=== PATIENT | female | born 1960 | race Caucasian/White ===

== ENCOUNTER 2018-03-12 07:48 | Inpatient (IN) | payer OTHER ==
[~2018-03-12] VITALS: Ht 158.8 cm; Wt 118.0 kg
--- NOTE | ~2018-03-12 | EKG ---
[place], [place] ELECTROCARDIOGRAM REPORT NAME: ROBERT STAFFORD UNIT #: [id number] ROOM: 504 DOCTOR: ARNOLD DRAFT REPORT BIRTHDATE: [birth year] [facility] Test Date: 2018-03-12 Test Time: 08:11:50 Pat Name: ROBERT STAFFORD Department: Room: 504 Gender: F Stock Mixer: [id number] : 1960 Requested By: TREY SANDOVAL Order Number: [id number] Reading MD: Madhav Tidwell MD Measurements Intervals [place] Rate: 77 P: 54 MT: 135 QRS: 47 QRSD: 85 T: 60 QT: 392 QTc: 444 Interpretive Statements Sinus rhythm Low voltage, precordial leads Electronically Signed On 03-12-2018 11:11:50 PDT by Madhav Tidwell MD CM:EKGRPT:ELECTROCARDIOGRAM REPORT [id number] TREY CHAN DRAFT REPORT TREY SANDOVAL DO
[~2018-03-12 07:48] MED LIST: ADVAIR 250/501 EA INH; ALBUTEROL0.09 MG/A2 IH; ALBUTEROL0.09 MG/A2 INH; ALBUTEROL2.5 MG/0.5 INH; BACTRIM DS 8001 TA1 PO; CIPRO500 MG PO; DELTASONE10 MG PO; DOXYCYCLINE MO100 MG PO; DOXYCYCLINE100 M3 PO; FLEXERIL10 MG PO; MEDROL DOSEPAK4 MG PO; MOTRIN800 MG PO; MUCINEX ER600 MG PO; PREDNICOT20 MG PO; PREDNISONE10 MG PO; PROVENTIL HFA6.7 GM INH; SINGULAIR10 MG PO; THEOPHYLLINE300 MG PO; THEOPHYLLINE600 MG PO; ZITHROMAX Z PA250 MG PO
[2018-03-12 08:10] LABS: BASO # 0.1 10*3/uL (0.0-0.1); BASO % 1.3 % (0.0-1.0); EOS # 0.4 10*3/uL (0.0-0.4); EOS % 7.9 % (1.0-4.0); HEMATOCRIT 42.6 % (37.0-47.0); HEMOGLOBIN 13.4 g/dl (12.0-16.0); LYMPH # 1.6 10*3/uL (1.3-4.4); LYMPH % 30.7 % (27.0-41.0); MEAN CORPUSCULAR HGB 31.5 pg (27.0-31.0); MEAN CORPUSCULAR HGB CONC 31.5 g/dl (33.0-37.0); MEAN PLATELET VOLUME 8.7 fl (9.6-12.3); MONO # 0.4 10*3/uL (0.1-1.0); MONO % 6.5 % (3.0-9.0); NEUT # 2.9 10*3/uL (2.3-7.9); NEUT % 53.4 % (47.0-73.0); PLATELET COUNT AUTOMATED 235 10*3/uL (130-400); RED BLOOD COUNT 4.26 10*6/uL (4.10-5.10); RED CELL DISTRI WIDTH 12.7 % (0-14.5); WHITE BLOOD COUNT 5.4 10*3/uL (4.8-10.8)
[2018-03-12 08:18] LABS: ACT PARTIAL THROMBO TIME 23.9 SECONDS (20.8-31.5)
[2018-03-12 08:25] LABS: ALBUMIN 3.4 gm/dl (3.1-4.5); ALKALINE PHOSPHATASE 71 U/L (45-117); BUN 8 mg/dl (7-24); CHLORIDE 107 mmol/L (98-107); CREATININE 0.88 mg/dL (0.55-1.02); LIPASE 221 U/L (73-393); POTASSIUM 3.7 mmol/L (3.5-5.1); SGOT/AST 20 IU/L (3-35); SGPT/ALT 28 U/L (12-78); SODIUM 143 mmol/L (136-145); TOTAL PROTEIN 6.8 gm/dL (6.4-8.2)
[2018-03-12 08:29] LABS: TROPONIN I < 0.015 ng/ml (<0.045)
[2018-03-12 08:43] VITALS: BP 140/88
[2018-03-12 09:30] VITALS: BP 123/74
[2018-03-12] MEDS ORDERED: IPRATROPIU0.2 MG/1 M NEB (09:33)
[2018-03-12 12:00] VITALS: BP 124/78
[2018-03-12 16:00] VITALS: BP 127/71
[2018-03-12 20:00] VITALS: BP 118/56
[2018-03-13] VITALS: BP 124/69
[2018-03-13 06:38] LABS: BASO % 0.1 % (0.0-1.0); HEMATOCRIT 38.6 % (37.0-47.0); HEMOGLOBIN 12.2 g/dl (12.0-16.0); LYMPH # 0.6 10*3/uL (1.3-4.4); MEAN CELL VOLUME 100.5 fl (81.0-99.0); MEAN CORPUSCULAR HGB 31.8 pg (27.0-31.0); MEAN CORPUSCULAR HGB CONC 31.6 g/dl (33.0-37.0); MEAN PLATELET VOLUME 9.3 fl (9.6-12.3); MONO # 0.4 10*3/uL (0.1-1.0); MONO % 4.5 % (3.0-9.0); NEUT % 87.9 % (47.0-73.0); PLATELET COUNT AUTOMATED 245 10*3/uL (130-400); RED BLOOD COUNT 3.84 10*6/uL (4.10-5.10); RED CELL DISTRI WIDTH 12.6 % (0-14.5); WHITE BLOOD COUNT 9.2 10*3/uL (4.8-10.8)
[2018-03-13 07:15] LABS: CHLORIDE 107 mmol/L (98-107); POTASSIUM 4.1 mmol/L (3.5-5.1); SODIUM 141 mmol/L (136-145)
[2018-03-13 07:16] LABS: ACT PARTIAL THROMBO TIME 21.6 SECONDS (20.8-31.5)
[2018-03-13 07:43] LABS: ALBUMIN 3.2 gm/dl (3.1-4.5); ALKALINE PHOSPHATASE 63 U/L (45-117); BUN 10 mg/dl (7-24); CHOLESTEROL 170 mg/dL (<200); CREATININE 0.81 mg/dL (0.55-1.02); HDL CHOLESTEROL 82 mg/dl (40-60); LDL CHOLESTEROL 75 mg/dL (9-159); PHOSPHOROUS 3.2 mg/dL (2.5-4.9); SGOT/AST 17 IU/L (3-35); SGPT/ALT 24 U/L (12-78); THYROID STIM HORMONE (HS) 0.516 uIU/ml (0.358-4.75); TOTAL PROTEIN 6.3 gm/dL (6.4-8.2); TRIGLYCERIDES 66 mg/dl (<150); VLDL CHOLESTEROL 13 mg/dL (6-40)
[2018-03-13 08:00] VITALS: BP 118/72
[2018-03-13 12:00] VITALS: BP 126/77
[2018-03-13 15:24] LABS: VITAMIN D, 25-HYDROXY 14.3 ng/mL (30-100)
[2018-03-13 16:00] VITALS: BP 135/78
[2018-03-13 20:00] VITALS: BP 133/75
[2018-03-14] VITALS: BP 107/53
[2018-03-14 06:35] LABS: BASO % 0.1 % (0.0-1.0); EOS % 0.1 % (1.0-4.0); HEMATOCRIT 38.2 % (37.0-47.0); HEMOGLOBIN 12.1 g/dl (12.0-16.0); LYMPH # 1.2 10*3/uL (1.3-4.4); LYMPH % 9.6 % (27.0-41.0); MEAN CELL VOLUME 101.1 fl (81.0-99.0); MEAN CORPUSCULAR HGB CONC 31.7 g/dl (33.0-37.0); MEAN PLATELET VOLUME 9.4 fl (9.6-12.3); MONO # 0.4 10*3/uL (0.1-1.0); MONO % 3.5 % (3.0-9.0); NEUT # 10.4 10*3/uL (2.3-7.9); NEUT % 86.2 % (47.0-73.0); PLATELET COUNT AUTOMATED 256 10*3/uL (130-400); RED BLOOD COUNT 3.78 10*6/uL (4.10-5.10); RED CELL DISTRI WIDTH 12.8 % (0-14.5)
[2018-03-14 07:07] LABS: ALBUMIN 3.3 gm/dl (3.1-4.5); ALKALINE PHOSPHATASE 60 U/L (45-117); BUN 12 mg/dl (7-24); CHLORIDE 106 mmol/L (98-107); CREATININE 0.74 mg/dL (0.55-1.02); SGOT/AST 15 IU/L (3-35); SGPT/ALT 24 U/L (12-78); SODIUM 142 mmol/L (136-145); TOTAL PROTEIN 6.3 gm/dL (6.4-8.2)
[2018-03-14] MEDS ORDERED: PREDNISONE10 MG PO (10:47)
[2018-03-14] MEDS ORDERED: VITAMIN D-32000 UNIT PO (10:47)
[2018-03-14] MEDS ORDERED: DOXYCYCLINE100 M3 PO (10:47)
[2018-03-14 12:00] VITALS: BP 120/42
== END 2018-03-14 15:00 | disposition home or self-care (01) | DRG 871 ==
LOC: ED 07:48 → 5E 08:38 → EDHOLD 08:38 → 5E 09:08
PROVIDERS: Emergency Medicine; Student in an Organized Health Care Education/Training Program
DX: A41.9 Sepsis, unspecified organism (principal); J18.9 Pneumonia, unspecified organism; J96.01 Acute respiratory failure with hypoxia; J44.1 Chronic obstructive pulmonary disease with (acute) exacerbation; J44.0 Chronic obstructive pulmonary disease with (acute) lower respiratory infection; E66.01 Morbid (severe) obesity due to excess calories; E83.41 Hypermagnesemia; R73.9 Hyperglycemia, unspecified; R03.0 Elevated blood-pressure reading, without diagnosis of hypertension; Z72.0 Tobacco use; Z71.6 Tobacco abuse counseling; Z99.81 Dependence on supplemental oxygen; Z79.899 Other long term (current) drug therapy; Z87.01 Personal history of pneumonia (recurrent); Z90.49 Acquired absence of other specified parts of digestive tract; Z98.84 Bariatric surgery status; Z68.37 Body mass index [BMI] 37.0-37.9, adult

== ENCOUNTER 2018-08-21 20:16 | Emergency (ER) | payer OTHER ==
[~2018-08-21] VITALS: Ht 160 cm; Wt 113.4 kg
--- NOTE | ~2018-08-21 | EKG ---
[place], [place] ELECTROCARDIOGRAM REPORT NAME: ROBERT STAFFORD UNIT #: [id number] ROOM: DOCTOR: EPIPHANY DRAFT REPORT BIRTHDATE: [birth year] [facility] Test Date: 2018-08-21 Test Time: 20:33:40 Pat Name: ROBERT STAFFORD Department: Room: Gender: F Senior Telecommunications Consultant: Colby Mckinley : 1960 Requested By: HAILEY RANGEL Order Number: [id number] Reading MD: Virginia Horan MD Measurements Intervals [place] Rate: 96 P: 53 AK: 134 QRS: 53 QRSD: 81 T: 57 QT: 353 QTc: 447 Interpretive Statements Sinus rhythm Low voltage, precordial leads Compared to ECG 07/13/2018 10:58:11 Low QRS voltage now present Electronically Signed On 08-22-2018 15:52:15 PDT by Virginia Horan MD CM:EKGRPT:ELECTROCARDIOGRAM REPORT [id number] HAILEY CHAN DRAFT REPORT HAILEY RANGEL DO
[~2018-08-21 20:16] MED LIST changes: +FUROSEMIDE40 MG PO; +IPRATROPIU0.2 MG/1 M NEB; +KLOR-CON M1010 ME1 PO; +VITAMIN D-32000 UNIT PO
[2018-08-21 20:57] LABS: BASO # 0.1 10*3/uL (0.0-0.1); BASO % 0.7 % (0.0-1.0); EOS # 0.2 10*3/uL (0.0-0.4); EOS % 2.6 % (1.0-4.0); HEMATOCRIT 42.4 % (37.0-47.0); HEMOGLOBIN 13.6 g/dl (12.0-16.0); LYMPH # 1.5 10*3/uL (1.3-4.4); LYMPH % 17.9 % (27.0-41.0); MEAN CELL VOLUME 101.7 fl (81.0-99.0); MEAN CORPUSCULAR HGB 32.6 pg (27.0-31.0); MEAN CORPUSCULAR HGB CONC 32.1 g/dl (33.0-37.0); MEAN PLATELET VOLUME 8.9 fl (9.6-12.3); MONO # 0.7 10*3/uL (0.1-1.0); MONO % 7.6 % (3.0-9.0); NEUT # 6.1 10*3/uL (2.3-7.9); NEUT % 70.8 % (47.0-73.0); PLATELET COUNT AUTOMATED 260 10*3/uL (130-400); RED BLOOD COUNT 4.17 10*6/uL (4.10-5.10); RED CELL DISTRI WIDTH 12.5 % (0-14.5); WHITE BLOOD COUNT 8.6 10*3/uL (4.8-10.8)
[2018-08-21 21:28] LABS: ALBUMIN 3.6 gm/dl (3.1-4.5); ALKALINE PHOSPHATASE 70 U/L (45-117); BUN 14 mg/dl (7-24); CHLORIDE 105 mmol/L (98-107); CREATININE 0.95 mg/dL (0.55-1.02); POTASSIUM 3.8 mmol/L (3.5-5.1); SGOT/AST 18 IU/L (3-35); SGPT/ALT 33 U/L (12-78); SODIUM 143 mmol/L (136-145)
[2018-08-21 21:29] LABS: TROPONIN I < 0.015 ng/ml (<0.045)
[2018-08-21] MEDS ORDERED: AVPAK AZITHROM250 M1 PO (21:59)
[2018-08-21] MEDS ORDERED: PREDNISONE20 M1 PO (21:59)
== END 2018-08-21 22:24 | disposition left against medical advice (07) ==
LOC: ED 20:16
PROVIDERS: Student in an Organized Health Care Education/Training Program
DX: J44.1 Chronic obstructive pulmonary disease with (acute) exacerbation (principal); E66.01 Morbid (severe) obesity due to excess calories; F17.200 Nicotine dependence, unspecified, uncomplicated; Z79.899 Other long term (current) drug therapy

== ENCOUNTER 2018-09-09 08:08 | Inpatient (IN) | payer OTHER ==
[~2018-09-09] VITALS: Ht 160 cm; Wt 111.1 kg
--- NOTE | ~2018-09-09 | EKG ---
[place], [place] ELECTROCARDIOGRAM REPORT NAME: ROBERT STAFFORD UNIT #: [id number] ROOM: 507 DOCTOR: ARNOLD DRAFT REPORT BIRTHDATE: [birth year] [facility] Test Date: 2018-09-09 Test Time: 08:34:54 Pat Name: ROBERT STAFFORD Department: Room: 507 Gender: F Burglar Alarm Assembler: Valery Alexander : 1960 Requested By: JOSEPH CHINO Order Number: [id number] Reading MD: Lina Barnes MD Measurements Intervals [place] Rate: 79 P: 57 MN: 134 QRS: 55 QRSD: 93 T: 62 QT: 388 QTc: 445 Interpretive Statements Sinus rhythm Low voltage, precordial leads Compared to ECG 08/21/2018 20:33:40 No significant changes Electronically Signed On 09-11-2018 10:06:35 PDT by Lina Barnes MD CM:EKGRPT:ELECTROCARDIOGRAM REPORT [id number] JOSEPH BARRETT DRAFT REPORT JOSEPH CHINO M.D.
[~2018-09-09 08:08] MED LIST changes: +AVPAK AZITHROM250 M1 PO; +PREDNISONE20 M1 PO
[2018-09-09 08:11] VITALS: BP 131/46
[2018-09-09 08:37] LABS: BASO # 0.1 10*3/uL (0.0-0.1); EOS # 0.3 10*3/uL (0.0-0.4); EOS % 4.8 % (1.0-4.0); HEMATOCRIT 41.8 % (37.0-47.0); HEMOGLOBIN 13.2 g/dl (12.0-16.0); LYMPH # 1.6 10*3/uL (1.3-4.4); MEAN CELL VOLUME 104.8 fl (81.0-99.0); MEAN CORPUSCULAR HGB 33.1 pg (27.0-31.0); MEAN CORPUSCULAR HGB CONC 31.6 g/dl (33.0-37.0); MONO # 0.3 10*3/uL (0.1-1.0); MONO % 5.5 % (3.0-9.0); NEUT # 3.7 10*3/uL (2.3-7.9); NEUT % 62.4 % (47.0-73.0); PLATELET COUNT AUTOMATED 243 10*3/uL (130-400); RED BLOOD COUNT 3.99 10*6/uL (4.10-5.10); RED CELL DISTRI WIDTH 12.8 % (0-14.5)
[2018-09-09 08:54] LABS: ALBUMIN 3.1 gm/dl (3.1-4.5); ALKALINE PHOSPHATASE 66 U/L (45-117); BUN 13 mg/dl (7-24); CHLORIDE 110 mmol/L (98-107); CREATININE 0.91 mg/dL (0.55-1.02); POTASSIUM 4.2 mmol/L (3.5-5.1); SGOT/AST 19 IU/L (3-35); SGPT/ALT 26 U/L (12-78); SODIUM 145 mmol/L (136-145); TOTAL PROTEIN 6.5 gm/dL (6.4-8.2)
--- NOTE | 2018-09-09 10:30 | NUR ---
A 57, admitted to 5E, under the services of ASHLEE Ortiz DO with a diagnosis of COPD. Chief complaint is SOB. Patient arrived via ambulatory from ER. Initial assessment completed. Vital signs taken and recorded. ASHLEE ORTIZ DO notified of admission to the unit. Orders received. See assessment for past medical history, medications and allergies. Patient and/or family oriented to unit. [facility] 5E visitation policy reviewed. Clothing/patient valuable form completed. SKIN INTACT WTIH NO WOUNDS. DECLINES FLU SHOT. PNEUMONIA VACCINATION CURRENT. BRET CROFT
[2018-09-09 10:46] VITALS: BP 124/81
[2018-09-09 12:00] VITALS: BP 138/69
[2018-09-09 16:00] VITALS: BP 128/49; BP 138/81
[2018-09-09 20:00] VITALS: BP 116/55
[2018-09-10] VITALS: BP 132/74
[2018-09-10 06:53] LABS: BASO % 0.1 % (0.0-1.0); HEMATOCRIT 40.5 % (37.0-47.0); HEMOGLOBIN 12.9 g/dl (12.0-16.0); LYMPH % 8.6 % (27.0-41.0); MEAN CELL VOLUME 102.8 fl (81.0-99.0); MEAN CORPUSCULAR HGB 32.7 pg (27.0-31.0); MEAN CORPUSCULAR HGB CONC 31.9 g/dl (33.0-37.0); MEAN PLATELET VOLUME 9.5 fl (9.6-12.3); MONO # 0.2 10*3/uL (0.1-1.0); MONO % 1.7 % (3.0-9.0); NEUT # 10.3 10*3/uL (2.3-7.9); NEUT % 88.9 % (47.0-73.0); PLATELET COUNT AUTOMATED 255 10*3/uL (130-400); RED BLOOD COUNT 3.94 10*6/uL (4.10-5.10); RED CELL DISTRI WIDTH 12.5 % (0-14.5); WHITE BLOOD COUNT 11.5 10*3/uL (4.8-10.8)
[2018-09-10 06:55] LABS: ALBUMIN 2.9 gm/dl (3.1-4.5); BUN 11 mg/dl (7-24); CHLORIDE 109 mmol/L (98-107); CHOLESTEROL 202 mg/dL (<200); CREATININE 0.68 mg/dL (0.55-1.02); PHOSPHOROUS 3.1 mg/dL (2.5-4.9); POTASSIUM 4.1 mmol/L (3.5-5.1); SGOT/AST 11 IU/L (3-35); SGPT/ALT 25 U/L (12-78); SODIUM 143 mmol/L (136-145); TOTAL PROTEIN 6.3 gm/dL (6.4-8.2); TRIGLYCERIDES 45 mg/dl (<150); VLDL CHOLESTEROL 9 mg/dL (6-40)
[2018-09-10 07:02] LABS: ALKALINE PHOSPHATASE 64 U/L (45-117); HDL CHOLESTEROL 97 mg/dl (40-60); LDL CHOLESTEROL 96 mg/dL (9-159); THYROID STIM HORMONE (HS) 0.515 uIU/ml (0.358-4.75)
[2018-09-10 08:00] VITALS: BP 132/81
--- NOTE | 2018-09-10 09:00 | NUR ---
PT SEEN AT THIS TIME. PT SITTING UP IN BED. PT HAS NO COMPLAINTS AT THIS TIME AND IS VERY PLEASANT. BED IN LOWEST LOCKED POSITION AND CALL LIGHT WITHIN REACH. WILL CONTINUE TO MONITOR
--- NOTE | 2018-09-10 10:30 | NUR ---
PT UP WALKING IN HALLS. STEADY GAIT.
[2018-09-10 12:00] VITALS: BP 127/69
--- NOTE | 2018-09-10 15:30 | NUR ---
REPORT RECEIVED FROM NERI SANTO
[2018-09-10 16:00] VITALS: BP 118/54
[2018-09-10 20:00] VITALS: BP 142/74
[2018-09-11] VITALS: BP 140/81
[2018-09-11 08:00] VITALS: BP 128/81
--- NOTE | 2018-09-11 08:00 | NUR ---
PT IS SITTING UP IN BED AT THIS THIS. PT IS AWAKE, ALERT, ORIENTED AND VERY PLEASANT. PT STATES SHE FEELS MUCH BETTER TODAY AND IS READY TO GO HOME. SHE HAS NO COMPLAINTS AT THIS TIME. BED IN LOWEST LOCKED POSITION AND CALL LIGHT WITHIN REACH.
[2018-09-11] MEDS ORDERED: MUCINEX ER600 MG PO (10:30)
[2018-09-11] MEDS ORDERED: PROVENTIL HFA6.7 GM INH (10:30)
[2018-09-11] MEDS ORDERED: ZITHROMAX500 MG PO (10:33)
[2018-09-11] MEDS ORDERED: PREDNISONE10 MG PO (10:33)
--- NOTE | 2018-09-11 11:06 | NUR ---
Discharge instructions reviewed with patient/family. Patient receptive and verbalizes understanding. Follow-up care arranged. Written instructions given to patient/family. SHANI CAMERON
--- NOTE | 2018-09-11 12:21 | NUR ---
Shipping Lead in to talk to patient. Patient states lives at HOME with FAMILY. There are FEW steps in the home. Physician: NONE, WANTS TO SET [facility] WITH [facility] Home health services: NONE Patient's level of ADLs: INDEPENDENT Patient has working utilities: YES DME: OXYGEN, PORTANBLE TANKS, NEBULIZER Follow-up physician's appointment after d/c: WILL BE MADE BY HOSPITALIST NURSE DIRECTOR ON DISCHARGE Does patient want to access PORTAL?: NO Discharge plan PT STATES SHE LIVES AT HOME WITH HER FAMILY AND IS INDEPENDENT IN HER CARE. DENIES ANY NEEDS AT HOME. STATES SHE WILL HAVE A RIDE. WILL CONTINUE TO FOLLOW.. RUSTAM LOPES
== END 2018-09-11 11:06 | disposition home or self-care (01) | DRG 189 ==
LOC: ED 08:08 → EDHOLD 09:49 → 5E 09:59
PROVIDERS: Emergency Medicine; Internal Medicine; ADMIT Internal Medicine
DX: J96.01 Acute respiratory failure with hypoxia (principal); J44.1 Chronic obstructive pulmonary disease with (acute) exacerbation; E44.0 Moderate protein-calorie malnutrition; R73.9 Hyperglycemia, unspecified; I87.2 Venous insufficiency (chronic) (peripheral); E66.01 Morbid (severe) obesity due to excess calories; F17.210 Nicotine dependence, cigarettes, uncomplicated; Z79.899 Other long term (current) drug therapy; Z87.01 Personal history of pneumonia (recurrent); Z87.440 Personal history of urinary (tract) infections; Z90.49 Acquired absence of other specified parts of digestive tract; Z98.84 Bariatric surgery status

== ENCOUNTER 2019-02-04 18:29 | Inpatient (IN) | payer OTHER ==
[~2019-02-04] VITALS: Ht 160 cm; Wt 114.1 kg
--- NOTE | ~2019-02-04 | EKG ---
[place], [place] ELECTROCARDIOGRAM REPORT NAME: ROBERT STAFFORD UNIT #: [id number] ROOM: 506 DOCTOR: ARNOLD DRAFT REPORT BIRTHDATE: [birth year] [facility] Test Date: 2019-02-04 Test Time: 19:06:22 Pat Name: ROBERT STAFFORD Department: Room: 506 Gender: F Dolly Pusher: Ophelia Neves : 1960 Requested By: WALE GRAVES PA-C Order Number: [id number] Reading MD: Rene Partida MD Measurements Intervals [place] Rate: 83 P: 49 MN: 142 QRS: 50 QRSD: 78 T: 51 QT: 380 QTc: 447 Interpretive Statements Sinus rhythm Compared to ECG 09/09/2018 08:34:54 No significant changes Electronically Signed On 02-05-2019 16:02:01 PDT by Rene Partida MD CM:EKGRPT:ELECTROCARDIOGRAM REPORT [id number] WALE GRAVES PA-C EPIPHANY DRAFT REPORT WALE GRAVES PA-C
[~2019-02-04 18:29] MED LIST changes: +ZITHROMAX500 MG PO
[2019-02-04 18:31] VITALS: BP 110/65
[2019-02-04 19:05] LABS: BASO # 0.1 10*3/uL (0.0-0.1); BASO % 1.1 % (0.0-1.0); EOS # 0.5 10*3/uL (0.0-0.4); EOS % 6.8 % (1.0-4.0); HEMATOCRIT 40.5 % (37.0-47.0); HEMOGLOBIN 12.6 g/dl (12.0-16.0); LYMPH # 1.8 10*3/uL (1.3-4.4); MEAN CELL VOLUME 102.3 fl (81.0-99.0); MEAN CORPUSCULAR HGB 31.8 pg (27.0-31.0); MEAN CORPUSCULAR HGB CONC 31.1 g/dl (33.0-37.0); MEAN PLATELET VOLUME 9.2 fl (9.6-12.3); MONO # 0.6 10*3/uL (0.1-1.0); MONO % 8.3 % (3.0-9.0); NEUT # 3.7 10*3/uL (2.3-7.9); NEUT % 56.6 % (47.0-73.0); PLATELET COUNT AUTOMATED 239 10*3/uL (130-400); RED BLOOD COUNT 3.96 10*6/uL (4.10-5.10); RED CELL DISTRI WIDTH 12.9 % (0-14.5); WHITE BLOOD COUNT 6.6 10*3/uL (4.8-10.8)
--- NOTE | 2019-02-04 19:10 | NUR ---
PT LAYING IN BED AT THIS TIME. PT DENIES PAIN OR DISTRESS. WILL CONTINUE TO MONITOR.
[2019-02-04 19:16] LABS: ACT PARTIAL THROMBO TIME 23.5 SECONDS (20.0-32.1); INTERNATIONAL NORM RATIO 0.9 (2.0-3.5)
[2019-02-04 19:23] LABS: ALBUMIN 3.3 gm/dl (3.1-4.5); ALKALINE PHOSPHATASE 69 U/L (45-117); BUN 12 mg/dl (7-24); CHLORIDE 106 mmol/L (98-107); POTASSIUM 3.7 mmol/L (3.5-5.1); SGOT/AST 20 IU/L (3-35); SGPT/ALT 28 U/L (12-78); SODIUM 145 mmol/L (136-145); TOTAL PROTEIN 6.4 gm/dL (6.4-8.2)
[2019-02-04 19:30] VITALS: BP 119/66
[2019-02-04 19:40] LABS: TROPONIN I < 0.015 ng/ml (<0.045)
--- NOTE | 2019-02-04 19:40 | NUR ---
PT AMBULATED TO RESTROOM AT THIS TIME. PT UNABLE TO PROVIDE URINE SAMPLE.
[2019-02-04 21:18] LABS: BILIRUBIN NEGATIVE (NEGATIVE); BLOOD TRACE-INTACT (NEGATIVE); CLARITY CLEAR (CLEAR); COLOR YELLOW (YELLOW); GLUCOSE NEGATIVE (NEGATIVE); KETONE NEGATIVE (NEGATIVE); LEUKO ESTERASE NEGATIVE (NEGATIVE); NITRITE NEGATIVE (NEGATIVE); PH 5.5 (5.0-9.0); SPECIFIC GRAVITY <= 1.005 (1.005-1.030); UROBILINOGEN 0.2 E.U./dl (0.2-1.0)
[2019-02-04 21:25] VITALS: BP 132/71
--- NOTE | 2019-02-04 21:25 | NUR ---
PATIENT ARRIVED TO FLOOR VIA WHEELCHAIR FROM ER, ESCORTED BY PATIENT EMERGENCY MANAGER. PATIENT AMBULATED TO BED FROM WHEELCHAIR AND THEN TO BATHROOM WITHOUT INCIDENT. ASSESSMENT AND ADMISSION COMPLETED, VITAL SIGNS OBTAINED AND DOCUMENTED. PATIENT ORIENTED TO ROOM, CALL LIGHT AND FLOOR. IV ANTIBIOTICS FROM ER COMPLETED, LINE FLUSHED WITHOUT INCIDENT. NOTIFIED OF PATIENT ARRIVAL, HOME MEDICATION, PATIENT CONDITION, ORDERS RECIEVED TO D/C FLUIDS PRIOR TO ADMINISTRATION. CALL LIGHT WITHIN REACH, PATIENT DENIED ANY CHEST PAIN/PRESSURE, OR NEEDS AT THIS TIME. WILL CONTINUE TO MONITOR.
[2019-02-04 21:35] LABS: EPITHELIAL CELLS 0-2; RBC 0-2 rbc/hpf (0-2)
[2019-02-05] VITALS: BP 118/65
--- NOTE | 2019-02-05 00:05 | NUR ---
RESTING IN BED IN A POSITION OF COMFORT, EYES CLOSED, RESPIRATIONS EASY AND NONLABORED AT THIS TIME. CALL LIGHT WITHIN REACH. WILL CONTINUE TO MONITOR.
[2019-02-05 06:40] LABS: ALBUMIN 3.3 gm/dl (3.1-4.5); BUN 9 mg/dl (7-24); CHLORIDE 106 mmol/L (98-107); POTASSIUM 4.5 mmol/L (3.5-5.1); SGOT/AST 18 IU/L (3-35); SGPT/ALT 28 U/L (12-78); SODIUM 142 mmol/L (136-145); TOTAL PROTEIN 6.6 gm/dL (6.4-8.2)
[2019-02-05 06:45] LABS: ALKALINE PHOSPHATASE 70 U/L (45-117); CHOLESTEROL 197 mg/dL (<200); HDL CHOLESTEROL 99 mg/dl (40-60); LDL CHOLESTEROL 90 mg/dL (9-159); PHOSPHOROUS 2.5 mg/dL (2.5-4.9); TRIGLYCERIDES 38 mg/dl (<150); VLDL CHOLESTEROL 8 mg/dL (6-40)
[2019-02-05 06:47] LABS: HEMATOCRIT 40.9 % (37.0-47.0); HEMOGLOBIN 12.8 g/dl (12.0-16.0); MEAN CORPUSCULAR HGB 31.6 pg (27.0-31.0); MEAN CORPUSCULAR HGB CONC 31.3 g/dl (33.0-37.0); MEAN PLATELET VOLUME 9.4 fl (9.6-12.3); PLATELET COUNT AUTOMATED 257 10*3/uL (130-400); RED BLOOD COUNT 4.05 10*6/uL (4.10-5.10); RED CELL DISTRI WIDTH 12.7 % (0-14.5); WHITE BLOOD COUNT 5.4 10*3/uL (4.8-10.8)
[2019-02-05 07:19] LABS: PLATELET SUFFICIENCY NORMAL (NORMAL); TOTAL CELLS COUNTED 100 #CELLS
[2019-02-05 08:00] VITALS: BP 124/51
[2019-02-05 12:00] VITALS: BP 134/71
--- NOTE | 2019-02-05 13:14 | NUR ---
Securities Teller in to talk to patient. Patient states lives at HOME with . There are NO steps in the home. Physician: HAS APPOINTMENT [facility] TUESDAY [facility] [place] health services: NONE Patient's level of ADLs: INDEPENDENT Patient has working utilities: YES DME: OXYGEN PRN, NEBULIZER DOES NOT KNOW COMPANY NAME Follow-up physician's appointment after d/c: Does patient want to access PORTAL?: NO Discharge plan PT STATES SHE LIVES AT HOME AND IS INDEPENDENT IN HER CARE. STATES SHE HAS OXYGEN AT HOME FOR PRN USE BUT HAS NOT USED IT IN A LONG TIME. ALSO HAS A NEBULIZER. PT STATES SHE WORKS 2 JOBS. WILL HAVE A RIDE HOME ON DISCHARGE WILL CONTINUE TO FOLLOW. . RUSTAM LOPES
[2019-02-05 16:00] VITALS: BP 126/70
[2019-02-05 20:00] VITALS: BP 128/71
--- NOTE | 2019-02-05 20:38 | NUR ---
24 HR chart check completed.
--- NOTE | 2019-02-05 21:00 | NUR ---
RESTING IN BED WATCHING TV WITH NO DISTRESS NOTED. RESPIRATIONS EASY. LUNGS DIMINISHED WITH I&E WHEEZES. PULSE OX 98% RA, O2 PRESENT AT BEDSIDE FOR PRN USE. BLE RED AND WARM WITH +3 EDEMA. OFFERED AND EDUCATED REGARDING TEDS, DECLINED. CALL LIGHT WITHIN REACH. NO VOICED COMPLAINTS
[2019-02-06] VITALS: BP 113/66
--- NOTE | 2019-02-06 | NUR ---
SLEEPING. NO DISTRESS NOTED. RESPIRATIONS EASY. VSS. CALL LIGHT WITHIN REACH.
[2019-02-06] MEDS ORDERED: PROAIR HFA8.5 GM INH (01:13)
--- NOTE | 2019-02-06 06:00 | NUR ---
SLEPT THROUGHOUT NIGHT WITH NO DISTRESS NOTED. RESPIRATIONS EASY. O2 REMAINS AT BEDSIDE BUT NOT IN USE. NO C/O SOB. CALL LIGHT WITHIN REACH. NO VOICED COMPLAINTS THIS SHIFT
[2019-02-06 06:22] LABS: BASO % 0.1 % (0.0-1.0); HEMATOCRIT 40.3 % (37.0-47.0); HEMOGLOBIN 12.9 g/dl (12.0-16.0); LYMPH # 0.8 10*3/uL (1.3-4.4); LYMPH % 8.4 % (27.0-41.0); MEAN CELL VOLUME 100.5 fl (81.0-99.0); MEAN CORPUSCULAR HGB 32.2 pg (27.0-31.0); MEAN PLATELET VOLUME 9.5 fl (9.6-12.3); MONO # 0.2 10*3/uL (0.1-1.0); MONO % 2.1 % (3.0-9.0); NEUT # 8.1 10*3/uL (2.3-7.9); PLATELET COUNT AUTOMATED 253 10*3/uL (130-400); RED BLOOD COUNT 4.01 10*6/uL (4.10-5.10); RED CELL DISTRI WIDTH 12.8 % (0-14.5); WHITE BLOOD COUNT 9.1 10*3/uL (4.8-10.8)
[2019-02-06 06:28] LABS: BUN 18 mg/dl (7-24); CHLORIDE 103 mmol/L (98-107); CREATININE 0.93 mg/dL (0.55-1.02); POTASSIUM 3.9 mmol/L (3.5-5.1); SODIUM 142 mmol/L (136-145)
[2019-02-06 08:00] VITALS: BP 114/80
[2019-02-06] MEDS ORDERED: PREDNISONE10 MG PO (09:05)
[2019-02-06] MEDS ORDERED: LEVAQUIN500 M2 PO (09:05)
[2019-02-06] MEDS ORDERED: ADVAIR HFA 230-12 GM INH (09:10)
[2019-02-06] MEDS ORDERED: SINGULAIR10 M1 PO (09:10)
[2019-02-06] MEDS ORDERED: LASIX40 MG PO (09:10)
--- NOTE | 2019-02-06 11:15 | NUR ---
DISCHARGE INSTRUCTIONS GIVEN TO THIS PATIENT SHE CLERIFIES UNDERSTANDING OF DISCHARGE PLANS AND FOLLOW UP APPOINTMENTS. IV TAKEN UT AT THIS TIME
--- NOTE | 2019-02-06 11:35 | NUR ---
PATIENT LEFT AT THIS TIME ALL BELONGINGS TAKEN WITH HER NO VERBAL COMPLAINTS
== END 2019-02-06 11:25 | disposition home or self-care (01) | DRG 871 ==
LOC: ED 18:29 → EDHOLD 19:58 → 5E 19:58
PROVIDERS: Physician Assistant; Student in an Organized Health Care Education/Training Program; ADMIT Internal Medicine
DX: A41.9 Sepsis, unspecified organism (principal); J18.9 Pneumonia, unspecified organism; J44.1 Chronic obstructive pulmonary disease with (acute) exacerbation; E44.1 Mild protein-calorie malnutrition; J44.0 Chronic obstructive pulmonary disease with (acute) lower respiratory infection; Z68.42 Body mass index [BMI] 45.0-49.9, adult; E83.41 Hypermagnesemia; J45.909 Unspecified asthma, uncomplicated; F17.210 Nicotine dependence, cigarettes, uncomplicated; E66.01 Morbid (severe) obesity due to excess calories; R73.9 Hyperglycemia, unspecified; Z79.899 Other long term (current) drug therapy; Z90.49 Acquired absence of other specified parts of digestive tract; Z98.84 Bariatric surgery status

== ENCOUNTER → 2019-02-09 | Outpatient (CLI) | payer OTHER ==
[~2019-02-09] MED LIST changes: +ADVAIR HFA 230-12 GM INH; +LASIX40 MG PO; +LEVAQUIN500 M2 PO; +PROAIR HFA8.5 GM INH; +SINGULAIR10 M1 PO
== END | disposition home or self-care (01) ==
LOC: RESCLI 02:41
DX: Z12.11 Encounter for screening for malignant neoplasm of colon (principal); Z12.4 Encounter for screening for malignant neoplasm of cervix; J44.9 Chronic obstructive pulmonary disease, unspecified; E55.9 Vitamin D deficiency, unspecified; R60.0 Localized edema; E66.01 Morbid (severe) obesity due to excess calories; Z79.899 Other long term (current) drug therapy; Z87.891 Personal history of nicotine dependence; Z88.8 Allergy status to other drugs, medicaments and biological substances; Z79.01 Long term (current) use of anticoagulants

== ENCOUNTER 2019-06-03 05:22 | Inpatient (IN) | payer OTHER ==
[~2019-06-03] VITALS: Ht 157.4 cm; Wt 112.1 kg
[2019-06-03] VITALS (8 sets, daily range): BP systolic 110–161; BP diastolic 51–84
[2019-06-03 06:38] LABS: ALBUMIN 3.2 gm/dl (3.1-4.5); ALKALINE PHOSPHATASE 84 U/L (45-117); BUN 10 mg/dl (7-24); CHLORIDE 107 mmol/L (98-107); CREATININE 0.83 mg/dL (0.55-1.02); POTASSIUM 3.9 mmol/L (3.5-5.1); SGOT/AST 11 IU/L (3-35); SGPT/ALT 23 U/L (12-78); SODIUM 144 mmol/L (136-145); TOTAL PROTEIN 6.3 gm/dL (6.4-8.2)
[2019-06-03 06:39] LABS: TROPONIN I < 0.015 ng/ml (<0.045)
[2019-06-03 06:44] LABS: ACT PARTIAL THROMBO TIME 24.1 SECONDS (20.0-32.1)
[2019-06-03 08:10] LABS: BASO # 0.1 10*3/uL (0.0-0.1); EOS # 0.5 10*3/uL (0.0-0.4); EOS % 6.3 % (1.0-4.0); HEMATOCRIT 39.7 % (37.0-47.0); HEMOGLOBIN 12.2 g/dl (12.0-16.0); LYMPH # 1.3 10*3/uL (1.3-4.4); LYMPH % 18.7 % (27.0-41.0); MEAN CELL VOLUME 101.5 fl (81.0-99.0); MEAN CORPUSCULAR HGB 31.2 pg (27.0-31.0); MEAN CORPUSCULAR HGB CONC 30.7 g/dl (33.0-37.0); MONO # 0.6 10*3/uL (0.1-1.0); MONO % 8.3 % (3.0-9.0); NEUT # 4.6 10*3/uL (2.3-7.9); NEUT % 64.9 % (47.0-73.0); PLATELET COUNT AUTOMATED 256 10*3/uL (130-400); RED BLOOD COUNT 3.91 10*6/uL (4.10-5.10); RED CELL DISTRI WIDTH 12.9 % (0-14.5); WHITE BLOOD COUNT 7.1 10*3/uL (4.8-10.8)
[2019-06-03] MEDS ORDERED: ADVAIR HFA 230-12 GM INH (09:54)
[2019-06-04] VITALS: BP 135/78
[2019-06-04 07:09] LABS: ALBUMIN 3.3 gm/dl (3.1-4.5); BUN 10 mg/dl (7-24); CHLORIDE 108 mmol/L (98-107); CHOLESTEROL 214 mg/dL (<200); CREATININE 0.79 mg/dL (0.55-1.02); HDL CHOLESTEROL 93 mg/dl (40-60); LDL CHOLESTEROL 104 mg/dL (9-159); POTASSIUM 4.3 mmol/L (3.5-5.1); SGOT/AST 17 IU/L (3-35); SGPT/ALT 25 U/L (12-78); SODIUM 142 mmol/L (136-145); TOTAL PROTEIN 6.8 gm/dL (6.4-8.2); TRIGLYCERIDES 87 mg/dl (<150); VLDL CHOLESTEROL 17 mg/dL (6-40)
[2019-06-04 07:14] LABS: HEMATOCRIT 42.3 % (37.0-47.0); MEAN CORPUSCULAR HGB CONC 30.7 g/dl (33.0-37.0); MEAN PLATELET VOLUME 9.3 fl (9.6-12.3); PLATELET COUNT AUTOMATED 268 10*3/uL (130-400); RED BLOOD COUNT 4.19 10*6/uL (4.10-5.10); RED CELL DISTRI WIDTH 12.8 % (0-14.5); WHITE BLOOD COUNT 16.4 10*3/uL (4.8-10.8)
[2019-06-04 07:15] LABS: ALKALINE PHOSPHATASE 82 U/L (45-117); FREE T4 0.66 ng/dl (0.76-1.46); THYROID STIM HORMONE (HS) 0.513 uIU/ml (0.358-4.75)
[2019-06-04 08:00] VITALS: BP 110/62
[2019-06-04 08:08] LABS: PLATELET SUFFICIENCY NORMAL (NORMAL); TOTAL CELLS COUNTED 100 #CELLS
[2019-06-04 08:46] LABS: VITAMIN D, 25-HYDROXY 11.3 ng/mL (30-100)
[2019-06-04 12:00] VITALS: BP 147/83
[2019-06-04 16:00] VITALS: BP 111/60; BP 122/81
[2019-06-04 20:00] VITALS: BP 106/60
[2019-06-05] VITALS: BP 119/65
[2019-06-05 12:00] VITALS: BP 132/64
[2019-06-05 16:00] VITALS: BP 121/74
[2019-06-05 20:00] VITALS: BP 127/74
[2019-06-06] VITALS: BP 125/68
[2019-06-06 06:00] VITALS: BP 132/70
[2019-06-06 07:19] LABS: BASO % 0.1 % (0.0-1.0); HEMATOCRIT 41.9 % (37.0-47.0); HEMOGLOBIN 12.8 g/dl (12.0-16.0); LYMPH # 1.2 10*3/uL (1.3-4.4); LYMPH % 11.9 % (27.0-41.0); MEAN CELL VOLUME 101.5 fl (81.0-99.0); MEAN CORPUSCULAR HGB CONC 30.5 g/dl (33.0-37.0); MEAN PLATELET VOLUME 9.1 fl (9.6-12.3); MONO # 0.4 10*3/uL (0.1-1.0); MONO % 3.7 % (3.0-9.0); NEUT # 8.1 10*3/uL (2.3-7.9); NEUT % 83.9 % (47.0-73.0); PLATELET COUNT AUTOMATED 282 10*3/uL (130-400); RED BLOOD COUNT 4.13 10*6/uL (4.10-5.10); RED CELL DISTRI WIDTH 12.8 % (0-14.5); WHITE BLOOD COUNT 9.7 10*3/uL (4.8-10.8)
[2019-06-06 07:27] LABS: ALBUMIN 3.2 gm/dl (3.1-4.5); ALKALINE PHOSPHATASE 77 U/L (45-117); BUN 16 mg/dl (7-24); CHLORIDE 104 mmol/L (98-107); CREATININE 0.73 mg/dL (0.55-1.02); POTASSIUM 4.1 mmol/L (3.5-5.1); SGOT/AST 10 IU/L (3-35); SGPT/ALT 21 U/L (12-78); SODIUM 140 mmol/L (136-145); TOTAL PROTEIN 6.6 gm/dL (6.4-8.2)
[2019-06-06 08:00] VITALS: BP 140/84
[2019-06-06 12:00] VITALS: BP 108/88
[2019-06-06 16:00] VITALS: BP 132/70
[2019-06-06 20:00] VITALS: BP 131/75
[2019-06-07] VITALS: BP 127/79
[2019-06-07 08:00] VITALS: BP 134/70
[2019-06-07 12:00] VITALS: BP 134/88
[2019-06-07] MEDS ORDERED: PREDNISONE10 MG PO (12:42)
[2019-06-07] MEDS ORDERED: VITAMIN D5000 UNI1 PO (12:42)
== END 2019-06-07 13:40 | disposition home or self-care (01) | DRG 871 ==
LOC: ED 05:22 → EDHOLD 08:18 → 4E 08:18
PROVIDERS: Emergency Medicine Emergency Medical Services; Registered Nurse; ADMIT Family Medicine
DX: A41.9 Sepsis, unspecified organism (principal); J96.21 Acute and chronic respiratory failure with hypoxia; J96.22 Acute and chronic respiratory failure with hypercapnia; J44.1 Chronic obstructive pulmonary disease with (acute) exacerbation; J45.901 Unspecified asthma with (acute) exacerbation; E44.0 Moderate protein-calorie malnutrition; J44.0 Chronic obstructive pulmonary disease with (acute) lower respiratory infection; Z68.42 Body mass index [BMI] 45.0-49.9, adult; J20.9 Acute bronchitis, unspecified; R65.20 Severe sepsis without septic shock; R73.9 Hyperglycemia, unspecified; E66.01 Morbid (severe) obesity due to excess calories; D75.89 Other specified diseases of blood and blood-forming organs; E55.9 Vitamin D deficiency, unspecified; F17.210 Nicotine dependence, cigarettes, uncomplicated; T38.0X5A Adverse effect of glucocorticoids and synthetic analogues, initial encounter; Y92.89 Other specified places as the place of occurrence of the external cause; Z90.49 Acquired absence of other specified parts of digestive tract; Z98.84 Bariatric surgery status; Z79.899 Other long term (current) drug therapy

== ENCOUNTER 2019-09-27 00:42 | Inpatient (IN) | payer OTHER ==
[2019-09-27] VITALS (20 sets, daily range): BP systolic 76–183; BP diastolic 31–85
[~2019-09-27] VITALS: Ht 160 cm; Wt 110.0 kg
[~2019-09-27 00:42] MED LIST changes: +VITAMIN D5000 UNI1 PO
--- NOTE | 2019-09-27 01:15 | NUR ---
Pt placed on BiPap 15/5 and FiO2 35%. SpO2 98%. Pt was not moving much air. By the end of a triple duuneb 9ml tx, she was wheezing and moving air and more alert. Alarms on and audible. EKG done.
[2019-09-27 02:08] LABS: BASO # 0.1 10*3/uL (0.0-0.1); BASO % 0.9 % (0.0-1.0); EOS # 0.9 10*3/uL (0.0-0.4); EOS % 6.6 % (1.0-4.0); HEMATOCRIT 47.4 % (37.0-47.0); LYMPH # 2.6 10*3/uL (1.3-4.4); MEAN CELL VOLUME 103.3 fl (81.0-99.0); MEAN CORPUSCULAR HGB 31.8 pg (27.0-31.0); MEAN CORPUSCULAR HGB CONC 30.8 g/dl (33.0-37.0); MEAN PLATELET VOLUME 9.1 fl (9.6-12.3); MONO # 0.7 10*3/uL (0.1-1.0); MONO % 4.8 % (3.0-9.0); NEUT # 9.9 10*3/uL (2.3-7.9); NEUT % 69.4 % (47.0-73.0); PLATELET COUNT AUTOMATED 278 10*3/uL (130-400); RED BLOOD COUNT 4.59 10*6/uL (4.10-5.10); RED CELL DISTRI WIDTH 12.6 % (0-14.5); WHITE BLOOD COUNT 14.2 10*3/uL (4.8-10.8)
--- NOTE | 2019-09-27 02:25 | NUR ---
Pt intubated with a 7.5 tube at 25cm at the lip. CO2 on the monitor change to 82. BBS heard but pt is super tight. Not a lot of air flow. Pt is on pressure control ventilation with a pressure of 35 and a peep 5+. Rate of 22. FiO2 60%. ABG will be obtained in an hour or so once line is placed. No comps with intubation. Glidescope used.
--- NOTE | 2019-09-27 02:31 | NUR ---
PT IS INTUBATED AT THIS TIME. 26CM AT THE LIP.
--- NOTE | 2019-09-27 02:56 | NUR ---
PROPOFOL STARTED AT 10MG/MIN PER ORDER FROM DR. RUSSO. . PT SHOWING SIGNS OF WAKING, TITRATED TO 20MG/MIN PER MD ORDER.
[2019-09-27 03:01] LABS: ALBUMIN 3.5 gm/dl (3.1-4.5); ALKALINE PHOSPHATASE 91 U/L (45-117); BUN 16 mg/dl (7-24); CHLORIDE 107 mmol/L (98-107); CREATININE 1.21 mg/dL (0.55-1.02); POTASSIUM 4.9 mmol/L (3.5-5.1); SGOT/AST 30 IU/L (3-35); SGPT/ALT 29 U/L (12-78); SODIUM 140 mmol/L (136-145); TOTAL PROTEIN 7.5 gm/dL (6.4-8.2)
--- NOTE | 2019-09-27 03:01 | NUR ---
@0218 PATIENT MEDICATED WITH ATIMODATE 34MG IV AT THIS TIME. @0219 PATIENT MEDICATED WITH 10MG ESTEVAN IV AT THIS TIME. @0221 PATIENT MEDICATED WITH 150MG OF SUCC IV AT THIS TIME. @0225 PATIENT INTUBATED BY MARNIE 25 AT THE LIP WITH 7.5 TUBE. @0235 PATIENT TOLERATING WELL AT THIS TIME. SPO2 98% ON VENT. RESP AT BEDSIDE WELL MARNIE AND DR RUSSO.
--- NOTE | 2019-09-27 03:11 | NUR ---
PROPOFOL INCREASED TO 30ML.
[2019-09-27 03:12] LABS: TROPONIN I < 0.015 ng/ml (<0.045)
--- NOTE | 2019-09-27 03:18 | NUR ---
PROPOFOL DRIP INCREASED TO 40MG/HR.
--- NOTE | 2019-09-27 03:20 | NUR ---
RIGHT SIDED IJ PLACED BY DR. MARIE AT THIS TIME.
--- NOTE | 2019-09-27 03:24 | NUR ---
PROPOFOL DECREASED TO 30MCG/KG/MIN.
--- NOTE | 2019-09-27 03:25 | NUR ---
GOLDBERG IN PLACE, URINE RETURN NOTED TO SAME
--- NOTE | 2019-09-27 03:49 | NUR ---
PT TITRATED TO 35MCG/KG/MIN ON PROPOFOL. 2 BOLUSES OF ROCURONIUM GIVEN PER DR. MARIE FOR TOTAL OF 20MG GIVEN D/T PT BUCKING THE VENT.
[2019-09-27 05:06] LABS: ABG BASE EXCESS -1.8 mmol/L (-2.0-2.0)
[2019-09-27 05:08] LABS: ARTERIAL BLOOD GAS PH 7.13 (7.35-7.45)
--- NOTE | 2019-09-27 05:18 | NUR ---
Adjusted patients tube from 25cm to 23cm. After ABG results, pressure changed from 35 to 45. Tidal volumes went up from 300's to low 400's. CO2 monitor also dropped to the low 80's. [id number]+ FIO2 50%
--- NOTE | 2019-09-27 05:30 | NUR ---
ADMITTING MD AWARE OF PT'S BP. PROPOFOL MAINTAINING AT 35MCG/KG/MIN WITH MODERATE SEDATION ACHIEVED. ORDER FOR 2ND BOLUS OF 500CC NS REC'D AND INITIATED BY IKE SANTO.
--- NOTE | 2019-09-27 05:54 | NUR ---
ADMITTING PHYSICIAN AWARE OF PT'S BP. ORDER FOR TOTAL OF 2L FLUID BOLUS OF NS REC'D AND INITIATED VIA PRESSURE BAG. BP CURRENTLY 81/29 MAP 46 HR 86 O2 99% VENTED AT 50% RR 22. PT MAINTAINING SEDATION AT 35MCG/KG/HR.
--- NOTE | 2019-09-27 06:00 | NUR ---
2L BOLUS OF NS COMPLETED AT THIS TIME. PT'S BP REMAINS WITH MAPS 40-45, CURRENTLY 76/30. ATTENDING MD AWARE, PT TRANSPORTED TO ICCU AT THIS TIME WITH 2RNS AND 2RTS. BEDSIDE REPORT GIVEN TO ICCU NURSE.
--- NOTE | 2019-09-27 06:20 | NUR ---
A 58 YEAR OLD FEMALE admitted to ICCU, under the services of FACUNDO Bashir DO with a diagnosis of ASTHMATIC BRONCHITIS, RESPIRATORY FAILURE. Chief complaint is SOB. Patient arrived via stretcher from ER. Monitor applied. Initial assessment completed. Vital signs taken and recorded. FACUNDO BASHIR DO notified of admission to the unit. Orders received. See assessment for past medical history, medications and allergies. Patient and/or family oriented to unit. [facility] ICCU visitation policy reviewed. Clothing/patient valuable form completed. SHELLEY VIRGEN
[2019-09-27 09:10] LABS: ABG BASE EXCESS -0.2 mmol/L (-2.0-2.0); ARTERIAL BLOOD GAS PH 7.272 (7.35-7.45)
--- NOTE | 2019-09-27 12:26 | NUR ---
DR. HASSAN'S ANSWERING SERVICE NOTIFIED OF CONSULT
[2019-09-27 14:02] LABS: BILIRUBIN NEGATIVE (NEGATIVE); BLOOD 1+ (NEGATIVE); CLARITY CLEAR (CLEAR); COLOR YELLOW (YELLOW); GLUCOSE NEGATIVE (NEGATIVE); KETONE NEGATIVE (NEGATIVE)
[2019-09-27 14:03] LABS: LEUKO ESTERASE NEGATIVE (NEGATIVE); NITRITE NEGATIVE (NEGATIVE); PH 7.5 (5.0-9.0); UROBILINOGEN 0.2 E.U./dl (0.2-1.0)
[2019-09-27 14:11] LABS: BACTERIA TRACE; EPITHELIAL CELLS 0-2; WBC 0-2 wbc/hpf (0-5)
[2019-09-27 14:40] LABS: ABG BASE EXCESS 1.7 mmol/L (-2.0-2.0); ARTERIAL BLOOD GAS PH 7.334 (7.35-7.45)
--- NOTE | 2019-09-27 16:00 | NUR ---
TURNED AND REPOSITIONED ONTO RIGHT SIDE. SEDATED ON DIPRIVAN GTT AT 50 BRUNO'S. BP 142/72. PULSE OX 97% ON VENT. WHEEZES HEARD IN LUNG BECKER. LOWER LEGS RED AND SWOLLEN. LEFT LEG GREATER IN SIZE THAN RIGHT LEG. GOLDBERG DRAINING CLEAR YELLOW URINE. RIJ MLC INTACT WITH ALL PORTS PATENT.
[2019-09-27 19:15] LABS: ABG BASE EXCESS 1.7 mmol/L (-2.0-2.0); ARTERIAL BLOOD GAS PH 7.33 (7.35-7.45)
--- NOTE | 2019-09-27 20:00 | NUR ---
FULL ASSESSMENT COMPLETED. ORAL CARE COMPLETED. ORAL CAVITY SUCTIONED FOR SMALL AMOUNT CLEAR LIQUID. TOWEL PLACED TO PREVENT SKIN BREAKDOWN FROM DROOLING. OG PLACEMENT CONFIRMED VIA AIR BOLUS. FLUSHED WITH H20 AND TUBE FEEDING OF PULMACARE @20ML/HR HUNG. DIPROVAN RUNNING INTOR RIGHT MLC. REPOSITIONED FOR COMFORT. HOB UP. SOFT RESTRAINTS IN PLACE TO PREVENT EXTUBATION. OPENS EYES TO VOICE. WILL CONTINUE TO MONITOR
[2019-09-28] VITALS (13 sets, daily range): BP systolic 110–1121; BP diastolic 60–82
--- NOTE | 2019-09-28 00:09 | NUR ---
ORAL CARE AND REPOSITIONING DONE. HOB UP. PULSE OX 91-93% ON 40% O2. RESP THERAPY NOTIFIED TO HELP MONITOR.
--- NOTE | 2019-09-28 00:20 | NUR ---
CLIENT HAS USED 3 DIFFERENT PHARMACYS. [facility] AND [facility].
--- NOTE | 2019-09-28 01:00 | NUR ---
24 HR chart check completed.
[2019-09-28 04:46] LABS: BUN 14 mg/dl (7-24); CHLORIDE 108 mmol/L (98-107); CHOLESTEROL 222 mg/dL (<200); CREATININE 0.92 mg/dL (0.55-1.02); HDL CHOLESTEROL 72 mg/dl (40-60); LDL CHOLESTEROL 115 mg/dL (9-159); POTASSIUM 4.6 mmol/L (3.5-5.1); SODIUM 143 mmol/L (136-145); TRIGLYCERIDES 173 mg/dl (<150); VLDL CHOLESTEROL 35 mg/dL (6-40)
[2019-09-28 05:43] LABS: ABG BASE EXCESS 3.2 mmol/L (-2.0-2.0); ARTERIAL BLOOD GAS PH 7.258 (7.35-7.45)
--- NOTE | 2019-09-28 05:53 | NUR ---
Arterial blood gases drawn from left radial after 1 attempt. The procedure was explained to the patient. The Clay's test was performed with satisfactory results. The artery was palpated. Pbrjqzz-casqnfuk-kodmwbm prep to site. The specimen was obtained and sent to the lab on ice. Digital pressure applied x 5 minutes. Pressure dressing applied. No bleeding or hematoma. Pulses equal bilaterally. JADE CUNNINGHAM
--- NOTE | 2019-09-28 05:55 | NUR ---
TOLERATED VENT WELL. AWAKENS TO VOICE. NODS HEAD YES/NO TO QUESTIONS. REPOSITIONED FOR COMFORT.
[2019-09-28 06:15] LABS: BASO % 0.2 % (0.0-1.0); EOS % 0.1 % (1.0-4.0); HEMATOCRIT 42.1 % (37.0-47.0); LYMPH # 1.6 10*3/uL (1.3-4.4); LYMPH % 13.1 % (27.0-41.0); MEAN CELL VOLUME 104.2 fl (81.0-99.0); MEAN CORPUSCULAR HGB 32.2 pg (27.0-31.0); MEAN CORPUSCULAR HGB CONC 30.9 g/dl (33.0-37.0); MEAN PLATELET VOLUME 9.4 fl (9.6-12.3); MONO % 8.2 % (3.0-9.0); NEUT # 9.8 10*3/uL (2.3-7.9); PLATELET COUNT AUTOMATED 254 10*3/uL (130-400); RED BLOOD COUNT 4.04 10*6/uL (4.10-5.10); RED CELL DISTRI WIDTH 12.7 % (0-14.5); WHITE BLOOD COUNT 12.5 10*3/uL (4.8-10.8)
--- NOTE | 2019-09-28 07:50 | NUR ---
Notified Dr Rojas pt was breathing over the vent resp rate 36-42 pt spo2 94% on RA.No rocuronium on JUL only versed. Per Dr Rojas pt doesnt need versed and "its alright. He will address it when he gets here.vitals obtained and diprivan gtt titrated to 40 ml/hr. Will continue to monitor.
[2019-09-28 08:27] LABS: VITAMIN D, 25-HYDROXY 19.4 ng/mL (30-100)
--- NOTE | 2019-09-28 13:00 | NUR ---
ARTLINE PLACEMENT COMPLETED PER DR ESCALANTE.ASSISTED AT BEDSIDE. PT TOLERATED WELL.
--- NOTE | 2019-09-28 13:20 | NUR ---
DR MOSS ROUNDED AND ORDERS RECIEVED.
[2019-09-28 14:05] LABS: ABG BASE EXCESS 3.5 mmol/L (-2.0-2.0); ARTERIAL BLOOD GAS PH 7.341 (7.35-7.45)
--- NOTE | 2019-09-28 14:21 | NUR ---
PT ON VENT. DISCHARGE PLANS UNKNOWN AT THIS TIME. WILL CONTINUE TO FOLLOW.
--- NOTE | 2019-09-28 14:51 | NUR ---
CHART CHECK COMPLETE.
--- NOTE | 2019-09-28 15:38 | NUR ---
PT RESTING IN BED. HOB ELEVATED. OGT PLACEMENT CHECKED AND VERIFIED BY AIR BOLUS/AUSCULTATION OVER EPIGASTRIC AREA. PULMOCARE AT 20CC/HR. ETT SECURE: AC 18, TV 550, FIO2 50%, PEEP 10. PROPOFOL GTT AT 45MCG/KG/MIN AND KETAMINE GTT AT 1MCG/KG/MIN IS ADEQUATE FOR SEDATION AT THIS TIME.
--- NOTE | 2019-09-28 17:18 | NUR ---
SUCTIONED LG AMT OF ORAL AND SECRETIONS ETT.
--- NOTE | 2019-09-28 17:20 | NUR ---
TYLENOL GIVE AT 1550 FOR LOW GRADE TEMP EFFECTIVE...NOW 99.3.
--- NOTE | 2019-09-28 17:53 | NUR ---
REPOSITIONED PT TO BACK AND SUCTIONED HER MOUTH FOR COPIOUS CLEAR SECRETIONS.
[2019-09-29] VITALS (11 sets, daily range): BP systolic 107–143; BP diastolic 58–76
--- NOTE | 2019-09-29 00:02 | NUR ---
Patient stable on vent, no distress noted. Excessive amount of secretions suctioned. Patient being monitored on camera.
[2019-09-29 05:43] LABS: ABG BASE EXCESS 4.6 mmol/L (-2.0-2.0); ARTERIAL BLOOD GAS PH 7.405 (7.35-7.45)
[2019-09-29 06:04] LABS: ALBUMIN 2.9 gm/dl (3.1-4.5); ALKALINE PHOSPHATASE 68 U/L (45-117); BUN 20 mg/dl (7-24); CHLORIDE 105 mmol/L (98-107); CREATININE 0.93 mg/dL (0.55-1.02); POTASSIUM 3.8 mmol/L (3.5-5.1); SGOT/AST 22 IU/L (3-35); SGPT/ALT 32 U/L (12-78); SODIUM 142 mmol/L (136-145); TOTAL PROTEIN 6.3 gm/dL (6.4-8.2)
[2019-09-29 06:20] LABS: HEMATOCRIT 40.1 % (37.0-47.0); MEAN CORPUSCULAR HGB 31.8 pg (27.0-31.0); MEAN CORPUSCULAR HGB CONC 31.9 g/dl (33.0-37.0); MEAN PLATELET VOLUME 9.5 fl (9.6-12.3); PLATELET COUNT AUTOMATED 235 10*3/uL (130-400); RED BLOOD COUNT 4.02 10*6/uL (4.10-5.10); RED CELL DISTRI WIDTH 12.2 % (0-14.5); WHITE BLOOD COUNT 8.9 10*3/uL (4.8-10.8)
[2019-09-29 06:31] LABS: MEAN CELL VOLUME 99.8 fl (81.0-99.0)
[2019-09-29 06:54] LABS: PLATELET SUFFICIENCY NORMAL (NORMAL); POLYCHROMASIA SLIGHT; TOTAL CELLS COUNTED 100 #CELLS
[2019-09-29 11:26] LABS: ABG BASE EXCESS 5.3 mmol/L (-2.0-2.0); ARTERIAL BLOOD GAS PH 7.421 (7.35-7.45)
--- NOTE | 2019-09-29 11:31 | NUR ---
Sedation vacation from 0800 -1000 became restless, and anxious. Propoful resumed and increased to 40 mcg. Ketamine remains at 5mg/h.
--- NOTE | 2019-09-29 14:34 | NUR ---
13:15 PT TRANSPORTED WITHOUT INCIDENT FROM [facility] TO CICU. PT BAGGED WITH 100% O2 DURING TRANSPORT. UPON ARRIVAL TO CICU, PT PLACED ON VENT. VENT CHECKED AND FX'ING. RESPS REGULAR AND UNLABORED. VITALS STABLE. BBSs EQUAL.
--- NOTE | 2019-09-29 14:36 | NUR ---
13:30 FIO2 DECREASED TO 30% BY DR AZIZ. HEARN'S TOFOLLOW IN 2 HRS.
[2019-09-29 15:50] LABS: ABG BASE EXCESS 6.2 mmol/L (-2.0-2.0); ARTERIAL BLOOD GAS PH 7.461 (7.35-7.45)
--- NOTE | 2019-09-29 16:01 | NUR ---
Dr. Rojas in to [place]. ABG drawn per LR A-line. resulted.
--- NOTE | 2019-09-29 20:00 | NUR ---
PT RESTING IN BED WITH EYES CLOSED, AWKENS WITH EASE. ENDOTUBE PATENT, TIES SECURE, VENT SETTINGS VERIFIED AND FUNCTIONING WITHOUT DIFFICULTY. OGT PATENT, PLACEMENT VERIFIED VIA AIR BOLUS AND TF EFREN WELL. RIGHT IJ MLC PATENT, DRESSING DRY AND INTACT, IVF'S INFUSING ORDERED. DIPRIVAN AND KETAMINE EFFECTIVE FOR SEDATION. LEFT ART LINE PATENT, DRESSING DRY AND INTACT, FLUSHED WITH EASE. GOLDBERG PATENT FOR HIPOLITO URINE. NO ACUTE DISTRESS NOTED AT THIS TIME.
[2019-09-30] VITALS (11 sets, daily range): BP systolic 102–160; BP diastolic 47–83
[2019-09-30 04:33] LABS: HEMATOCRIT 38.8 % (37.0-47.0); LYMPH # 0.8 10*3/uL (1.3-4.4); LYMPH % 9.1 % (27.0-41.0); MEAN CELL VOLUME 99.7 fl (81.0-99.0); MEAN CORPUSCULAR HGB 31.1 pg (27.0-31.0); MEAN CORPUSCULAR HGB CONC 31.2 g/dl (33.0-37.0); MEAN PLATELET VOLUME 9.2 fl (9.6-12.3); MONO # 0.3 10*3/uL (0.1-1.0); MONO % 3.3 % (3.0-9.0); NEUT % 87.1 % (47.0-73.0); PLATELET COUNT AUTOMATED 216 10*3/uL (130-400); RED BLOOD COUNT 3.89 10*6/uL (4.10-5.10); RED CELL DISTRI WIDTH 12.7 % (0-14.5); WHITE BLOOD COUNT 9.1 10*3/uL (4.8-10.8)
[2019-09-30 04:48] LABS: ALBUMIN 2.9 gm/dl (3.1-4.5); ALKALINE PHOSPHATASE 58 U/L (45-117); BUN 23 mg/dl (7-24); CHLORIDE 107 mmol/L (98-107); CREATININE 0.81 mg/dL (0.55-1.02); POTASSIUM 3.8 mmol/L (3.5-5.1); SGOT/AST 20 IU/L (3-35); SGPT/ALT 30 U/L (12-78); SODIUM 143 mmol/L (136-145); TOTAL PROTEIN 5.9 gm/dL (6.4-8.2)
--- NOTE | 2019-09-30 07:30 | NUR ---
SEDATED ON VENT. REMAINS ON DIPRIVAN GTT AT 40 BRUNO'S AND KETAMINE AT 5CC/HR. SLIGHT WHEEZES HEARD IN LUNG BECKER. BILATERAL LOWER LEGS RED AND SWOLLEN. TEMP 99. BP 121/68.
[2019-09-30 07:52] LABS: ABG BASE EXCESS 6.6 mmol/L (-2.0-2.0); ARTERIAL BLOOD GAS PH 7.458 (7.35-7.45)
[2019-09-30 14:21] LABS: ABG BASE EXCESS 6.4 mmol/L (-2.0-2.0); ARTERIAL BLOOD GAS PH 7.437 (7.35-7.45)
--- NOTE | 2019-09-30 14:45 | NUR ---
DR. MOSS NOTIFIED OF ABG RESULTS. ORDERS RECEIVED TO EXTUBATE PATIENT. PLACED ON BI-PAP 18/10 WITH FIO2 30%
--- NOTE | 2019-09-30 14:47 | NUR ---
PT EXTUBATED AT 1449. PT TOLERATED WELL. PT PLACED ON BIPAP AT THIS TIME 18/10-30%. SPO2 94% , HR 87. NO STRIDOR NOTED AT THIS TIME
--- NOTE | 2019-09-30 16:45 | NUR ---
TAKEN OFF BI-PAP AND PALCED ON NASAL CANNULA 2L
[2019-09-30 17:09] LABS: ARTERIAL BLOOD GAS PH 7.427 (7.35-7.45)
--- NOTE | 2019-09-30 20:16 | NUR ---
PT. WATCHING TV. ALERT AND ORIENTED x3. COOPERATIVE AND PLEASANT. L RADIAL ART LINE INTACT, LEVELED, ZEROED AND FLUSHED PER POLICY. RIJ MLC INTACT, ALL PORTS PATENT. HEP LOCK IN RH ASYMPT. LUNGS HAVE I&E WHEEZES BILAT, PLS EOX 94% ON 2L NC. ABDOMEN SOFTLY DISTENDED AND NORMO. MORBIDLY OBESE. EDEMA VS OBESITY. GOLDBERG DRAINING A CLEAR YELLOW URINE. LOWER LEGS REDDENED WITH PPP+. RESP. EASY AND REG, NO DISTRESS. BINDU KURTZ RN
--- NOTE | 2019-09-30 22:43 | NUR ---
PT. GIVEN RESTORIL ORDERED FOR COMPLAINTS OF INSOMNIA. STATED DROWSINESS, RESTORIL EFFECTUVE,
[2019-10-01] VITALS: BP 150/77
[2019-10-01 04:00] VITALS: BP 135/86
[2019-10-01 05:12] LABS: BUN 23 mg/dl (7-24); CHLORIDE 109 mmol/L (98-107); CREATININE 0.67 mg/dL (0.55-1.02); POTASSIUM 4.3 mmol/L (3.5-5.1); SODIUM 144 mmol/L (136-145)
[2019-10-01 06:49] LABS: HEMATOCRIT 39.4 % (37.0-47.0); LYMPH # 0.6 10*3/uL (1.3-4.4); LYMPH % 7.4 % (27.0-41.0); MEAN CELL VOLUME 100.8 fl (81.0-99.0); MEAN CORPUSCULAR HGB 31.7 pg (27.0-31.0); MEAN CORPUSCULAR HGB CONC 31.5 g/dl (33.0-37.0); MEAN PLATELET VOLUME 9.6 fl (9.6-12.3); MONO # 0.2 10*3/uL (0.1-1.0); MONO % 2.3 % (3.0-9.0); NEUT # 7.5 10*3/uL (2.3-7.9); NEUT % 89.5 % (47.0-73.0); PLATELET COUNT AUTOMATED 221 10*3/uL (130-400); RED BLOOD COUNT 3.91 10*6/uL (4.10-5.10); RED CELL DISTRI WIDTH 12.8 % (0-14.5); WHITE BLOOD COUNT 8.4 10*3/uL (4.8-10.8)
[2019-10-01 08:00] VITALS: BP 136/78
--- NOTE | 2019-10-01 10:07 | NUR ---
corral removed art line removed per policy, pressure dressing appleid after pressure held for 5 minutes and bleeding ceased
--- NOTE | 2019-10-01 13:30 | NUR ---
Occupational Therapy evaluation completed on ICCU with full evaluation to follow. Recommend occupational therapy per plan of care and Home with HH SN, OT, and PT with / supervision assist upon discharge. Thank you for this referral. Dottie Block OTR/L
--- NOTE | 2019-10-01 14:58 | NUR ---
First Helper in to talk to patient. Patient states lives at HOME with BOYFRIEND. There are 12 steps in the home. Physician: [facility] Pharmacy: [facility] health services: NONE Patient's level of ADLs: INDEPENDENT Patient has working utilities: YES DME: NONE Follow-up physician's appointment after d/c: WILL BE MADE BY HOSPITALIST NURSE DIRECTOR ON DISCHARGE Does patient want to access PORTAL?: NO Discharge plan PT STATES SHE LIVES AT HOME WITH HER BOYFRIEND AND IS MOSTLY INDEPENDENT IN HER CARE. DENIES SHE WILLL HAVE ANY NEEDS ON DISCHARGE. PLANS TO RETURN HOME WITH BOYFRIEND WHEN MEDICALLY STABLE. WILL CONTINUE TO FOLLOW. STATES SHE WILL HAVE A RIDE HOME. RUSTAM LOPES
--- NOTE | 2019-10-01 15:05 | NUR ---
Physical Therapy evaluation completed in ICCU with full evaluation to follow. Recommend physical therapy per plan of care and home with boyfriend/assist with use of FWW and HH services upon discharge if continues to progress well with activity. Thank you for this referral. Beba Gillespie PT
[2019-10-01 16:00] VITALS: BP 117/59
--- NOTE | 2019-10-01 16:37 | NUR ---
UP IN RECLINER, MOVES ABOUT WELL, JUST A LITTLE WOBBLY WALKING COOPERATIVE, PLEASANT
[2019-10-01] MEDS ORDERED: TORSEMIDE20 MG PO (16:59)
--- NOTE | 2019-10-01 17:36 | NUR ---
PT WALKED WITH WALKER AND OFF AND STAFF INTO IMC TO 401 POX UPON RETURNING TO ICCU WAS 74% ON ROOM AIR, PT RECOVERED TO 94% WITHIN 2 MINUTES OF BEING PLACED ON NC AT 2L
--- NOTE | 2019-10-01 20:00 | NUR ---
PATIENT IS ALERT AND ORIENTED. VOICED NO COMPLAINTS AT THIS TIME. VITAL SIGNS ARE WNL. PATIENT IS RESTING CONFORTABLE IN HER CHAIR. RESP ARE ERND ON ROOM AIR. CALL LIGHT LEFT WITHIN REACH
[2019-10-01 20:02] VITALS: BP 109/61
[2019-10-01 20:13] VITALS: BP 109/61
--- NOTE | 2019-10-01 20:50 | NUR ---
PATIENT WAS ABLE TO GIVE SELF BEDSIDE BATH. PATIENT TOLERATED ACTIVITY WELL ON ROOM AIR. SPO2 REMAINED WNL. WILL CONTINUE TO MONITOR
--- NOTE | 2019-10-01 21:10 | NUR ---
PATIENT MEDICATED WITH RESTORIL FOR SLEEPING AIDE. WILL CONTINUE TO MONITOR
--- NOTE | 2019-10-02 04:00 | NUR ---
PATIENT RESTING QUIETLY WITH BIPAP IN PLACE. NO OVERT DISTRESS NOTED. RESP ARE EASY AND REGULAR, SPO2 REMAINS WNL. CALL LIGHT LEFT WITHIN REACH
--- NOTE | 2019-10-02 07:06 | NUR ---
PATIENT TAKEN OFF OF BIPAP AT THIS TIME. PATIENT SPO2 DROPPED TO 86% ON ROOM AIR IN ATTEMPTS TO USE BSC. PATIENT THEN PLACED ON 2L NC, SPO2 WNL.
[2019-10-02 08:00] VITALS: BP 133/86
--- NOTE | 2019-10-02 09:00 | NUR ---
ASSESS FOR HOME OXYGEN ROOM AIR AT REST: SPO2 88% HR 90 BP 136/86 SUPPLEMENTAL O2 AT 2L AT REST: SPO2 93% SUPPLEMENTAL O2 AT 2L WITH AMBULATION: SPO2 90-93% RECOVERY ON 2L NC: SPO2 94% HR 94 BP 141/75 PT. REQUIRES 2L OF O2 VIA NC CONTINUOUSLY TO KEEP SPO2 GREATER THAN OR EQUAL TO 88%. NOTIFIED.
--- NOTE | 2019-10-02 09:40 | NUR ---
PHYSICAL THERAPY Patient seen this am 1;1 for therapy visit and was sitting up in bedside chair upon therapist arrival. Patient identified by name / and presented with continuos O2-2L via NC, recording resting SpO2 91%. OT mortgage assistant was also present for observation only this session as patient transfers sit to stand CGA x 1. Patient ambulated without AD, 125 x 1, SBA, demonstrating increased gait velocity at first, however following v/c improved to slower, steady lety. Patient tolerated eyes open / closed without LOB and completed all 90 / 180 turns with Fair+ safety awareness. Patient returned to bedside chair with mild fatigue, recording SpO2 88%, however returned to baseline stats within approx 10 seconds seated rest. Patient remained in chair with call light, tray table and telephone. Will continue per POC as tolerated, total treatmen time 16 minutes. Abhijit Sheffield, SUPERVISOR HOME ENERGY CONSULTANT
--- NOTE | 2019-10-02 09:45 | NUR ---
OT NOTE Pt was seen this A.M. 1:1 for 25 minute OT session. Upon arrival pt was sitting upright in the recliner. Pt identified by name and and had no complaints at this time. Pt presented to therapy with continuous 2L-O2 via NC which she remained on throughout the entire time. Pt's resting SpO2 was 91%. While seated pt doffed and donned B socks with SBA. Sit to stand completed from chair level with SBA for safety. Functional mobility was then completed around the room with SBA. Challenged pt's static standing tolerance needed for increased I in self care tasks and functional transfers, pt was able to tolerate aprox 10 minutes total of being up, however required a standing rest break after aprox 2 minutes due to SpO2 dropping to 88% within 10 seconds pt's SpO2 raised to 91%. Then challenged pt's dynamic standing balance while weight shifting, crossing midline, and reaching over all planes. Pt was able to maintain G/G- standing balance throughout. Pt was left sitting upright in the recliner with call light in hand, tray table in place, and ICCU nurse notified. Continue with rec D/C plan to home with home health. SUZANNE Leonard/Yumiko
[2019-10-02] MEDS ORDERED: PREDNISONE10 MG PO (13:16)
[2019-10-02] MEDS ORDERED: CEFDINIR300 MG PO (13:16)
--- NOTE | 2019-10-02 14:42 | NUR ---
Discharge instructions reviewed with patient/family. Patient receptive and verbalizes understanding. Follow-up care arranged. Written instructions given to patient/family. ABDOULAYE BENITEZ
--- NOTE | 2019-10-03 07:44 | NUR ---
OCCUPATIONAL THERAPY CO-SIGN I approve of the Occupational Therapy notes written above. RAY WICK, OTR/L
--- NOTE | 2019-10-03 08:20 | NUR ---
PHYSICAL THERAPY CO-SIGN I approve of the Physical Therapy notes written above. Beba Gillespie PT
== END 2019-10-02 14:42 | disposition home or self-care (01) | DRG 871 ==
LOC: ED 00:42 → EDHOLD 03:27 → 5E 03:27 → ICCU 03:27 → 5E 11:03 → ICCU 09-29 11:22
PROVIDERS: Emergency Medicine; Family Medicine; Internal Medicine; Internal Medicine Critical Care Medicine; Student in an Organized Health Care Education/Training Program; ADMIT Internal Medicine
PROC: 0BH18EZ Insertion of Endotracheal Airway into Trachea, Via Natural or Artificial Opening Endoscopic (ICD-10-PCS; principal; 2019-09-27)
PROC: 5A1945Z Respiratory Ventilation, 24-96 Consecutive Hours (ICD-10-PCS; principal; 2019-09-27)
PROC: 02HV33Z Insertion of Infusion Device into Superior Vena Cava, Percutaneous Approach (ICD-10-PCS; principal; 2019-09-27)
PROC: 5A09357 Assistance with Respiratory Ventilation, Less than 24 Consecutive Hours, Continuous Positive Airway Pressure (ICD-10-PCS; principal; 2019-09-27)
PROC: B548ZZA Ultrasonography of Superior Vena Cava, Guidance (ICD-10-PCS; principal; 2019-09-27)
PROC: 03HY32Z Insertion of Monitoring Device into Upper Artery, Percutaneous Approach (ICD-10-PCS; 2019-09-28)
PROC: 4A133B1 Monitoring of Arterial Pressure, Peripheral, Percutaneous Approach (ICD-10-PCS; 2019-09-28)
PROC: 4A133J1 Monitoring of Arterial Pulse, Peripheral, Percutaneous Approach (ICD-10-PCS; 2019-09-28)
PROC: 5A09357 Assistance with Respiratory Ventilation, Less than 24 Consecutive Hours, Continuous Positive Airway Pressure (ICD-10-PCS; 2019-09-30)
PROC: 5A09357 Assistance with Respiratory Ventilation, Less than 24 Consecutive Hours, Continuous Positive Airway Pressure (ICD-10-PCS; 2019-10-02)
DX: A41.9 Sepsis, unspecified organism (principal); J96.21 Acute and chronic respiratory failure with hypoxia; N17.0 Acute kidney failure with tubular necrosis; J18.9 Pneumonia, unspecified organism; J96.22 Acute and chronic respiratory failure with hypercapnia; J45.52 Severe persistent asthma with status asthmaticus; E44.0 Moderate protein-calorie malnutrition; J44.1 Chronic obstructive pulmonary disease with (acute) exacerbation; J44.0 Chronic obstructive pulmonary disease with (acute) lower respiratory infection; Z68.41 Body mass index [BMI] 40.0-44.9, adult; R65.20 Severe sepsis without septic shock; E66.01 Morbid (severe) obesity due to excess calories; F17.210 Nicotine dependence, cigarettes, uncomplicated; R73.9 Hyperglycemia, unspecified; J20.9 Acute bronchitis, unspecified; E88.09 Other disorders of plasma-protein metabolism, not elsewhere classified; Z03.818 Encounter for observation for suspected exposure to other biological agents ruled out; Z90.49 Acquired absence of other specified parts of digestive tract; Z98.84 Bariatric surgery status; Z79.899 Other long term (current) drug therapy

== ENCOUNTER → 2019-11-02 | Outpatient (CLI) | payer OTHER ==
[~2019-11-02] MED LIST changes: +CEFDINIR300 MG PO; +TORSEMIDE20 MG PO
== END | disposition home or self-care (01) ==
LOC: RESCLI 04:09
DX: J44.9 Chronic obstructive pulmonary disease, unspecified (principal); E55.9 Vitamin D deficiency, unspecified; R60.9 Edema, unspecified; F17.210 Nicotine dependence, cigarettes, uncomplicated; J93.83 Other pneumothorax; Z99.81 Dependence on supplemental oxygen; Z90.49 Acquired absence of other specified parts of digestive tract; Z98.84 Bariatric surgery status; Z79.899 Other long term (current) drug therapy

== ENCOUNTER → 2019-12-03 | Outpatient (CLI) | payer OTHER | END | disposition home or self-care (01) | LOC: RESCLI 00:17 | DX: J44.9 Chronic obstructive pulmonary disease, unspecified (principal); E55.9 Vitamin D deficiency, unspecified; R60.9 Edema, unspecified; F17.210 Nicotine dependence, cigarettes, uncomplicated; Z79.899 Other long term (current) drug therapy; Z90.49 Acquired absence of other specified parts of digestive tract; Z98.84 Bariatric surgery status ==

== ENCOUNTER → 2020-03-18 | Outpatient (CLI) | payer OTHER | END | disposition home or self-care (01) | LOC: RESCLI 01:01 | PROVIDERS: ATTEND Internal Medicine | DX: J44.9 Chronic obstructive pulmonary disease, unspecified (principal); J45.909 Unspecified asthma, uncomplicated; E55.9 Vitamin D deficiency, unspecified; R60.9 Edema, unspecified; J44.1 Chronic obstructive pulmonary disease with (acute) exacerbation; F17.210 Nicotine dependence, cigarettes, uncomplicated; Z79.899 Other long term (current) drug therapy; Z98.890 Other specified postprocedural states ==

== ENCOUNTER 2020-04-10 02:12 | Inpatient (IN) | payer OTHER ==
[~2020-04-10] VITALS: Ht 160 cm; Wt 106.7 kg
[2020-04-10] VITALS (10 sets, daily range): BP systolic 120–148; BP diastolic 75–90
[2020-04-10 02:41] LABS: BASO # 0.1 10*3/uL (0.0-0.1); BASO % 1.2 % (0.0-1.0); EOS # 0.4 10*3/uL (0.0-0.4); EOS % 5.3 % (1.0-4.0); HEMATOCRIT 40.9 % (37.0-47.0); LYMPH # 2.8 10*3/uL (1.3-4.4); LYMPH % 34.8 % (27.0-41.0); MEAN CELL VOLUME 99.5 fl (81.0-99.0); MEAN CORPUSCULAR HGB 31.4 pg (27.0-31.0); MEAN CORPUSCULAR HGB CONC 31.5 g/dl (33.0-37.0); MEAN PLATELET VOLUME 8.7 fl (9.6-12.3); MONO # 0.5 10*3/uL (0.1-1.0); MONO % 5.8 % (3.0-9.0); NEUT # 4.3 10*3/uL (2.3-7.9); NEUT % 52.5 % (47.0-73.0); PLATELET COUNT AUTOMATED 269 10*3/uL (130-400); RED BLOOD COUNT 4.11 10*6/uL (4.10-5.10); RED CELL DISTRI WIDTH 12.7 % (0-14.5); WHITE BLOOD COUNT 8.2 10*3/uL (4.8-10.8)
[2020-04-10 02:57] LABS: ACT PARTIAL THROMBO TIME 24.2 SECONDS (20.0-32.1)
[2020-04-10 03:06] LABS: ALBUMIN 3.5 gm/dl (3.1-4.5); ALKALINE PHOSPHATASE 86 U/L (45-117); BUN 16 mg/dl (7-24); CHLORIDE 108 mmol/L (98-107); CREATININE 0.92 mg/dL (0.55-1.02); POTASSIUM 3.9 mmol/L (3.5-5.1); SGOT/AST 15 IU/L (3-35); SGPT/ALT 27 U/L (12-78); SODIUM 143 mmol/L (136-145); TOTAL PROTEIN 6.9 gm/dL (6.4-8.2)
[2020-04-10 03:09] LABS: TROPONIN I < 0.015 ng/ml (<0.045)
[2020-04-11] VITALS: BP 129/77
[2020-04-11 07:52] LABS: BASO % 0.1 % (0.0-1.0); EOS % 0.1 % (1.0-4.0); HEMATOCRIT 41.4 % (37.0-47.0); LYMPH # 0.9 10*3/uL (1.3-4.4); LYMPH % 7.6 % (27.0-41.0); MEAN CORPUSCULAR HGB 32.1 pg (27.0-31.0); MEAN CORPUSCULAR HGB CONC 32.1 g/dl (33.0-37.0); MEAN PLATELET VOLUME 9.1 fl (9.6-12.3); MONO # 0.3 10*3/uL (0.1-1.0); MONO % 2.4 % (3.0-9.0); NEUT # 10.7 10*3/uL (2.3-7.9); NEUT % 88.8 % (47.0-73.0); PLATELET COUNT AUTOMATED 286 10*3/uL (130-400); RED BLOOD COUNT 4.14 10*6/uL (4.10-5.10); RED CELL DISTRI WIDTH 12.5 % (0-14.5)
[2020-04-11 08:09] LABS: BUN 12 mg/dl (7-24); CHLORIDE 109 mmol/L (98-107); CREATININE 0.69 mg/dL (0.55-1.02); POTASSIUM 4.6 mmol/L (3.5-5.1); SODIUM 143 mmol/L (136-145)
[2020-04-11 12:00] VITALS: BP 138/93
[2020-04-11 16:00] VITALS: BP 111/87
[2020-04-11 20:00] VITALS: BP 102/54
[2020-04-12] VITALS: BP 126/68
[2020-04-12 08:00] VITALS: BP 122/94
[2020-04-12 12:00] VITALS: BP 130/74
[2020-04-12] MEDS ORDERED: ZITHROMAX250 MG PO (12:54)
[2020-04-12 16:00] VITALS: BP 140/96
[2020-04-12] MEDS ORDERED: PREDNISONE10 MG PO (16:02)
== END 2020-04-12 18:24 | disposition home or self-care (01) | DRG 871 ==
LOC: ED 02:12 → 5E 03:19 → EDHOLD 03:19 → 5E 16:05
PROVIDERS: Internal Medicine; ADMIT Internal Medicine; ATTEND Internal Medicine
DX: A41.9 Sepsis, unspecified organism (principal); J18.9 Pneumonia, unspecified organism; J96.21 Acute and chronic respiratory failure with hypoxia; J44.1 Chronic obstructive pulmonary disease with (acute) exacerbation; J44.0 Chronic obstructive pulmonary disease with (acute) lower respiratory infection; Z68.41 Body mass index [BMI] 40.0-44.9, adult; E87.8 Other disorders of electrolyte and fluid balance, not elsewhere classified; R73.9 Hyperglycemia, unspecified; E55.9 Vitamin D deficiency, unspecified; F17.210 Nicotine dependence, cigarettes, uncomplicated; J20.9 Acute bronchitis, unspecified; R65.20 Severe sepsis without septic shock; E66.9 Obesity, unspecified; T38.0X5A Adverse effect of glucocorticoids and synthetic analogues, initial encounter; Y92.89 Other specified places as the place of occurrence of the external cause; Z90.49 Acquired absence of other specified parts of digestive tract; Z79.51 Long term (current) use of inhaled steroids; Z79.899 Other long term (current) drug therapy; Z71.6 Tobacco abuse counseling

== ENCOUNTER → 2020-05-07 | Outpatient (CLI) | payer OTHER ==
[~2020-05-07] MED LIST changes: +ZITHROMAX250 MG PO
== END | disposition home or self-care (01) ==
LOC: RESCLI 00:26
PROVIDERS: ATTEND Internal Medicine Nephrology
DX: J44.9 Chronic obstructive pulmonary disease, unspecified (principal); J45.909 Unspecified asthma, uncomplicated; F17.210 Nicotine dependence, cigarettes, uncomplicated; E55.9 Vitamin D deficiency, unspecified; E66.01 Morbid (severe) obesity due to excess calories; J44.1 Chronic obstructive pulmonary disease with (acute) exacerbation; I50.32 Chronic diastolic (congestive) heart failure; Z99.81 Dependence on supplemental oxygen; Z79.899 Other long term (current) drug therapy; Z98.890 Other specified postprocedural states

== ENCOUNTER → 2020-05-16 | Outpatient (CLI) | payer OTHER | END | disposition home or self-care (01) | LOC: RESCLI 00:24 | PROVIDERS: ATTEND Student in an Organized Health Care Education/Training Program | DX: J44.9 Chronic obstructive pulmonary disease, unspecified (principal); E55.9 Vitamin D deficiency, unspecified; I50.32 Chronic diastolic (congestive) heart failure ==

== ENCOUNTER → 2020-06-30 | Outpatient (CLI) | payer OTHER | END | disposition home or self-care (01) | LOC: RESCLI 01:49 | PROVIDERS: ATTEND Internal Medicine Nephrology | DX: J44.9 Chronic obstructive pulmonary disease, unspecified (principal); J45.909 Unspecified asthma, uncomplicated; E55.9 Vitamin D deficiency, unspecified; I50.32 Chronic diastolic (congestive) heart failure; Z99.81 Dependence on supplemental oxygen; Z79.899 Other long term (current) drug therapy ==

== ENCOUNTER 2021-04-24 16:11 | Emergency (ER) | payer OTHER ==
[~2021-04-24] VITALS: Ht 160 cm; Wt 108.9 kg
[2021-04-24 16:48] LABS: BASO # 0.1 10*3/uL (0.0-0.1); BASO % 0.8 % (0.0-1.0); EOS # 0.4 10*3/uL (0.0-0.4); EOS % 6.8 % (1.0-4.0); HEMATOCRIT 38.2 % (37.0-47.0); LYMPH # 1.9 10*3/uL (1.3-4.4); LYMPH % 29.7 % (27.0-41.0); MEAN CELL VOLUME 100.3 fl (81.0-99.0); MEAN CORPUSCULAR HGB 31.8 pg (27.0-31.0); MEAN CORPUSCULAR HGB CONC 31.7 g/dl (33.0-37.0); MEAN PLATELET VOLUME 8.7 fl (9.6-12.3); MONO # 0.4 10*3/uL (0.1-1.0); MONO % 6.3 % (3.0-9.0); NEUT # 3.6 10*3/uL (2.3-7.9); NEUT % 56.1 % (47.0-73.0); PLATELET COUNT AUTOMATED 228 10*3/uL (130-400); RED BLOOD COUNT 3.81 10*6/uL (4.10-5.10); RED CELL DISTRI WIDTH 13.1 % (0-14.5); WHITE BLOOD COUNT 6.5 10*3/uL (4.8-10.8)
[2021-04-24 17:03] LABS: ALBUMIN 3.1 gm/dl (3.1-4.5); ALKALINE PHOSPHATASE 79 U/L (45-117); BUN 14 mg/dl (7-24); CHLORIDE 111 mmol/L (98-107); CREATININE 0.84 mg/dL (0.55-1.02); POTASSIUM 3.7 mmol/L (3.5-5.1); SGOT/AST 16 IU/L (3-35); SGPT/ALT 28 U/L (12-78); SODIUM 146 mmol/L (136-145); TOTAL PROTEIN 6.3 gm/dL (6.4-8.2)
[2021-04-24 17:17] LABS: ACT PARTIAL THROMBO TIME 23.4 SECONDS (20.0-32.1)
[2021-04-24] MEDS ORDERED: VIBRAMYCIN100 MG PO (18:52)
[2021-04-24] MEDS ORDERED: VENT7GM INH (18:52)
[2021-04-24] MEDS ORDERED: PREDNISONE50 MG PO (18:52)
== END 2021-04-24 19:15 | disposition home or self-care (01) ==
LOC: ED 16:11
PROVIDERS: Emergency Medicine
DX: J18.1 Lobar pneumonia, unspecified organism (principal); Z20.822 Contact with and (suspected) exposure to COVID-19; J44.9 Chronic obstructive pulmonary disease, unspecified

== ENCOUNTER 2021-05-17 19:41 | Inpatient (IN) | payer OTHER ==
[~2021-05-17] VITALS: Ht 161.2 cm; Wt 112.3 kg
[~2021-05-17 19:41] MED LIST changes: +PREDNISONE50 MG PO; +VENT7GM INH; +VIBRAMYCIN100 MG PO
[2021-05-17 20:01] VITALS: BP 122/62
[2021-05-17 21:01] LABS: BASO # 0.1 10*3/uL (0.0-0.1); BASO % 1.1 % (0.0-1.0); EOS # 0.4 10*3/uL (0.0-0.4); EOS % 6.1 % (1.0-4.0); HEMATOCRIT 38.7 % (37.0-47.0); LYMPH # 1.5 10*3/uL (1.3-4.4); LYMPH % 20.3 % (27.0-41.0); MEAN CELL VOLUME 100.5 fl (81.0-99.0); MEAN CORPUSCULAR HGB 31.4 pg (27.0-31.0); MEAN CORPUSCULAR HGB CONC 31.3 g/dl (33.0-37.0); MEAN PLATELET VOLUME 8.9 fl (9.6-12.3); MONO # 0.4 10*3/uL (0.1-1.0); MONO % 5.6 % (3.0-9.0); NEUT # 4.8 10*3/uL (2.3-7.9); NEUT % 66.6 % (47.0-73.0); PLATELET COUNT AUTOMATED 240 10*3/uL (130-400); RED BLOOD COUNT 3.85 10*6/uL (4.10-5.10); RED CELL DISTRI WIDTH 12.7 % (0-14.5); WHITE BLOOD COUNT 7.2 10*3/uL (4.8-10.8)
[2021-05-17 21:12] LABS: ALBUMIN 3.2 gm/dl (3.1-4.5); ALKALINE PHOSPHATASE 76 U/L (45-117); BUN 10 mg/dl (7-24); CHLORIDE 109 mmol/L (98-107); CREATININE 0.83 mg/dL (0.55-1.02); POTASSIUM 3.9 mmol/L (3.5-5.1); SGOT/AST 19 IU/L (3-35); SGPT/ALT 31 U/L (12-78); SODIUM 144 mmol/L (136-145); TOTAL PROTEIN 6.7 gm/dL (6.4-8.2)
[2021-05-17 23:15] VITALS: BP 118/61
[2021-05-18] VITALS (7 sets, daily range): BP systolic 109–130; BP diastolic 58–86
[2021-05-18 04:03] LABS: BASO # 0.1 10*3/uL (0.0-0.1); BASO % 1.2 % (0.0-1.0); EOS # 0.5 10*3/uL (0.0-0.4); LYMPH # 2.6 10*3/uL (1.3-4.4); LYMPH % 32.9 % (27.0-41.0); MEAN CELL VOLUME 102.3 fl (81.0-99.0); MEAN CORPUSCULAR HGB 31.7 pg (27.0-31.0); MEAN PLATELET VOLUME 9.1 fl (9.6-12.3); MONO # 0.5 10*3/uL (0.1-1.0); MONO % 6.9 % (3.0-9.0); NEUT # 4.1 10*3/uL (2.3-7.9); NEUT % 52.7 % (47.0-73.0); PLATELET COUNT AUTOMATED 257 10*3/uL (130-400); RED BLOOD COUNT 3.91 10*6/uL (4.10-5.10); RED CELL DISTRI WIDTH 12.9 % (0-14.5); WHITE BLOOD COUNT 7.8 10*3/uL (4.8-10.8)
[2021-05-18 04:19] LABS: ALBUMIN 3.3 gm/dl (3.1-4.5); BUN 9 mg/dl (7-24); CHLORIDE 110 mmol/L (98-107); CHOLESTEROL 221 mg/dL (<200); CREATININE 0.76 mg/dL (0.55-1.02); LDL CHOLESTEROL 118 mg/dL (9-159); SGOT/AST 21 IU/L (3-35); SGPT/ALT 30 U/L (12-78); SODIUM 142 mmol/L (136-145); TOTAL PROTEIN 6.6 gm/dL (6.4-8.2); TRIGLYCERIDES 64 mg/dl (<150)
[2021-05-18 04:24] LABS: ALKALINE PHOSPHATASE 76 U/L (45-117)
[2021-05-19 03:11] VITALS: BP 125/83
[2021-05-19 07:50] VITALS: BP 118/50
[2021-05-19 08:20] VITALS: BP 119/65
[2021-05-19 12:00] VITALS: BP 136/67
[2021-05-19] MEDS ORDERED: VITAMIN D31250 MC1 PO (12:18)
[2021-05-19] MEDS ORDERED: PREDNISONE10 MG PO (12:18)
[2021-05-19] MEDS ORDERED: ZITHROMAX250 MG PO (12:18)
[2021-05-19] MEDS ORDERED: Ipratropium Brom3 ML INH (12:20)
[2021-05-19] MEDS ORDERED: NEBULIZER NEB (12:20)
== END 2021-05-19 13:50 | disposition home or self-care (01) | DRG 193 ==
LOC: ED 19:41 → 4E 05-18 02:17 → EDHOLD 05-18 02:17 → 4E 05-18 15:33 → EDHOLD 05-18 15:34 → 4E 05-19 07:03
PROVIDERS: Emergency Medicine; Internal Medicine; ADMIT Emergency Medicine; ATTEND Emergency Medicine
DX: J18.9 Pneumonia, unspecified organism (principal); J96.21 Acute and chronic respiratory failure with hypoxia; E44.0 Moderate protein-calorie malnutrition; J44.1 Chronic obstructive pulmonary disease with (acute) exacerbation; J44.0 Chronic obstructive pulmonary disease with (acute) lower respiratory infection; Z68.41 Body mass index [BMI] 40.0-44.9, adult; Z20.822 Contact with and (suspected) exposure to COVID-19; E87.8 Other disorders of electrolyte and fluid balance, not elsewhere classified; R73.9 Hyperglycemia, unspecified; E83.41 Hypermagnesemia; J20.9 Acute bronchitis, unspecified; J45.909 Unspecified asthma, uncomplicated; F17.210 Nicotine dependence, cigarettes, uncomplicated; E78.5 Hyperlipidemia, unspecified; Z71.6 Tobacco abuse counseling; Z90.49 Acquired absence of other specified parts of digestive tract; Z79.51 Long term (current) use of inhaled steroids

== ENCOUNTER → 2021-06-18 | Outpatient (CLI) | payer OTHER ==
[~2021-06-18] MED LIST changes: +Ipratropium Brom3 ML INH; +NEBULIZER NEB; +VITAMIN D31250 MC1 PO
== END | disposition home or self-care (01) ==
LOC: COVID19 15:18
PROVIDERS: ATTEND Internal Medicine
DX: Z20.822 Contact with and (suspected) exposure to COVID-19 (principal)

== ENCOUNTER 2022-02-28 12:55 | Inpatient (IN) | payer OTHER ==
[~2022-02-28] VITALS: Ht 160 cm; Wt 112.7 kg
[2022-02-28 13:26] LABS: BASO # 0.1 10*3/uL (0.0-0.1); BASO % 0.7 % (0.0-1.0); EOS # 0.2 10*3/uL (0.0-0.4); EOS % 2.2 % (1.0-4.0); HEMATOCRIT 40.3 % (37.0-47.0); LYMPH # 0.9 10*3/uL (1.3-4.4); LYMPH % 13.2 % (27.0-41.0); MEAN CORPUSCULAR HGB 32.2 pg (27.0-31.0); MEAN CORPUSCULAR HGB CONC 32.5 g/dl (33.0-37.0); MEAN PLATELET VOLUME 8.8 fl (9.6-12.3); MONO # 0.5 10*3/uL (0.1-1.0); NEUT # 5.2 10*3/uL (2.3-7.9); NEUT % 76.6 % (47.0-73.0); PLATELET COUNT AUTOMATED 218 10*3/uL (130-400); RED BLOOD COUNT 4.07 10*6/uL (4.10-5.10); RED CELL DISTRI WIDTH 12.5 % (0-14.5); WHITE BLOOD COUNT 6.8 10*3/uL (4.8-10.8)
[2022-02-28 13:43] LABS: ALKALINE PHOSPHATASE 82 U/L (45-117); BUN 10 mg/dl (7-24); CHLORIDE 109 mmol/L (98-107); CREATININE 0.83 mg/dL (0.55-1.02); POTASSIUM 3.6 mmol/L (3.5-5.1); SGOT/AST 20 IU/L (3-35); SGPT/ALT 24 U/L (12-78); SODIUM 140 mmol/L (136-145); TOTAL PROTEIN 6.9 gm/dL (6.4-8.2)
[2022-02-28 16:15] VITALS: BP 134/78
[2022-02-28 17:10] VITALS: BP 127/90
[2022-02-28 20:00] VITALS: BP 138/88
[2022-03-01] VITALS: BP 137/72
[2022-03-01 06:23] LABS: BUN 8 mg/dl (7-24); CHLORIDE 109 mmol/L (98-107); CHOLESTEROL 208 mg/dL (<200); CREATININE 0.61 mg/dL (0.55-1.02); SODIUM 140 mmol/L (136-145)
[2022-03-01 06:26] LABS: LDL CHOLESTEROL 111 mg/dL (9-159)
[2022-03-01 06:28] LABS: POTASSIUM 4.9 mmol/L (3.5-5.1)
[2022-03-01 06:29] LABS: TRIGLYCERIDES 63 mg/dl (<150)
[2022-03-01 06:58] LABS: BASO % 0.5 % (0.0-1.0); HEMATOCRIT 41.7 % (37.0-47.0); LYMPH # 0.6 10*3/uL (1.3-4.4); LYMPH % 13.9 % (27.0-41.0); MEAN CELL VOLUME 99.8 fl (81.0-99.0); MEAN CORPUSCULAR HGB 32.1 pg (27.0-31.0); MEAN CORPUSCULAR HGB CONC 32.1 g/dl (33.0-37.0); MEAN PLATELET VOLUME 8.9 fl (9.6-12.3); MONO # 0.1 10*3/uL (0.1-1.0); MONO % 2.2 % (3.0-9.0); NEUT # 3.4 10*3/uL (2.3-7.9); NEUT % 82.9 % (47.0-73.0); PLATELET COUNT AUTOMATED 226 10*3/uL (130-400); RED BLOOD COUNT 4.18 10*6/uL (4.10-5.10); RED CELL DISTRI WIDTH 12.4 % (0-14.5); WHITE BLOOD COUNT 4.1 10*3/uL (4.8-10.8)
[2022-03-01 08:00] VITALS: BP 138/78
[2022-03-01 12:00] VITALS: BP 150/81
[2022-03-01 16:00] VITALS: BP 143/81
[2022-03-01 20:43] VITALS: BP 136/88
[2022-03-02] VITALS (7 sets, daily range): BP systolic 121–149; BP diastolic 66–96
[2022-03-02 06:33] LABS: HEMATOCRIT 42.5 % (37.0-47.0); LYMPH # 1.3 10*3/uL (1.3-4.4); LYMPH % 14.2 % (27.0-41.0); MEAN CELL VOLUME 102.7 fl (81.0-99.0); MEAN CORPUSCULAR HGB 32.4 pg (27.0-31.0); MEAN CORPUSCULAR HGB CONC 31.5 g/dl (33.0-37.0); MEAN PLATELET VOLUME 9.2 fl (9.6-12.3); MONO # 0.7 10*3/uL (0.1-1.0); MONO % 7.4 % (3.0-9.0); NEUT # 6.9 10*3/uL (2.3-7.9); NEUT % 77.7 % (47.0-73.0); PLATELET COUNT AUTOMATED 249 10*3/uL (130-400); RED BLOOD COUNT 4.14 10*6/uL (4.10-5.10); RED CELL DISTRI WIDTH 12.8 % (0-14.5); WHITE BLOOD COUNT 8.8 10*3/uL (4.8-10.8)
[2022-03-02 06:52] LABS: BUN 16 mg/dl (7-24); CHLORIDE 105 mmol/L (98-107); CREATININE 0.75 mg/dL (0.55-1.02); POTASSIUM 4.8 mmol/L (3.5-5.1); SODIUM 142 mmol/L (136-145)
[2022-03-03] VITALS: BP 124/69
[2022-03-03 06:19] LABS: BUN 18 mg/dl (7-24); CHLORIDE 104 mmol/L (98-107); CREATININE 0.76 mg/dL (0.55-1.02); SODIUM 142 mmol/L (136-145)
[2022-03-03 06:26] LABS: BASO % 0.1 % (0.0-1.0); EOS % 0.1 % (1.0-4.0); LYMPH % 23.2 % (27.0-41.0); MEAN CELL VOLUME 102.4 fl (81.0-99.0); MEAN CORPUSCULAR HGB 31.7 pg (27.0-31.0); MEAN PLATELET VOLUME 9.3 fl (9.6-12.3); MONO # 0.5 10*3/uL (0.1-1.0); MONO % 6.1 % (3.0-9.0); NEUT # 5.9 10*3/uL (2.3-7.9); NEUT % 69.9 % (47.0-73.0); PLATELET COUNT AUTOMATED 255 10*3/uL (130-400); RED CELL DISTRI WIDTH 12.9 % (0-14.5); WHITE BLOOD COUNT 8.4 10*3/uL (4.8-10.8)
[2022-03-03 08:00] VITALS: BP 126/58
[2022-03-03] MEDS ORDERED: PREDNISONE10 MG PO (11:23)
[2022-03-03] MEDS ORDERED: DOXYCYCLINE HY100 M3 PO (11:23)
[2022-03-03] MEDS ORDERED: VENT7GM INH (11:23)
[2022-03-03] MEDS ORDERED: LASIX20 MG PO (11:23)
== END 2022-03-03 13:15 | disposition home or self-care (01) | DRG 871 ==
LOC: ED 12:55 → 4E 14:40 → EDHOLD 14:40 → 4E 15:13
PROVIDERS: Nurse Practitioner Family; Student in an Organized Health Care Education/Training Program; ADMIT Internal Medicine; ATTEND Internal Medicine
DX: A41.9 Sepsis, unspecified organism (principal); J18.9 Pneumonia, unspecified organism; J96.01 Acute respiratory failure with hypoxia; J44.1 Chronic obstructive pulmonary disease with (acute) exacerbation; J45.901 Unspecified asthma with (acute) exacerbation; J98.11 Atelectasis; J44.0 Chronic obstructive pulmonary disease with (acute) lower respiratory infection; E78.5 Hyperlipidemia, unspecified; F17.210 Nicotine dependence, cigarettes, uncomplicated; Z20.822 Contact with and (suspected) exposure to COVID-19; E87.8 Other disorders of electrolyte and fluid balance, not elsewhere classified; R73.9 Hyperglycemia, unspecified; E55.9 Vitamin D deficiency, unspecified; R65.20 Severe sepsis without septic shock; Z90.49 Acquired absence of other specified parts of digestive tract; Z98.84 Bariatric surgery status; Z71.6 Tobacco abuse counseling

== ENCOUNTER → 2022-03-10 | Outpatient (CLI) | payer OTHER ==
[~2022-03-10] MED LIST changes: +DOXYCYCLINE HY100 M3 PO; +LASIX20 MG PO
== END | disposition home or self-care (01) ==
LOC: RESCLI 01:53
PROVIDERS: ATTEND Student in an Organized Health Care Education/Training Program
DX: J44.9 Chronic obstructive pulmonary disease, unspecified (principal); I50.32 Chronic diastolic (congestive) heart failure; J45.909 Unspecified asthma, uncomplicated; E55.9 Vitamin D deficiency, unspecified; F17.200 Nicotine dependence, unspecified, uncomplicated; Z90.49 Acquired absence of other specified parts of digestive tract; Z98.890 Other specified postprocedural states; Z79.899 Other long term (current) drug therapy